=== PATIENT | male | born 1970 | race Caucasian/White ===

== ENCOUNTER 2023-04-01 18:56 | Inpatient (IN) | payer SELFPAY ==
[2023-04-01 19:09] VITALS: BP 193/141; PULSE 115; RESP 16; TEMP 36.9; O2SAT 94; BMI 40.6
--- NOTE | 2023-04-01 19:31 | DI.US.S_ITS ---
PROCEDURE: US SCROTUM INDICATIONS: significant swelling TECHNIQUE: Real-time scanning was performed of the scrotum and testicles, with image documentation. Color and pulse Doppler interrogation was performed of both testicles. COMPARISON: None. FINDINGS: Right: Testicle is normal in size at 4.1 x 3.1 x 3 cm, and homogenous in echotexture. Epididymis is normal in overall size and morphology. Small hydrocele is seen. No varicoceles. Diffuse right scrotal wall thickening is noted measures up to 4.4 cm in thickness. Left: Testicle is normal in size at 3.7 x 3 x 3.5 cm, and homogeneous in echotexture. Epididymis is normal in overall size and morphology. Small hydrocele is seen. No varicoceles. Diffuse scrotal wall thickening is noted measures up to 5.2 cm in thickness. Doppler: Color and pulse Doppler demonstrate normal and symmetric arterial flow in both testicles. IMPRESSION: 1. Diffuse scrotal wall thickening suggestive of cellulitis. Small bilateral hydroceles. No varicoceles. 2. Normal appearing testes and epididymi. No testicular torsion. No discrete testicular lesion. Dictated by: Darius Lu M.D. on 04/01/2023 at 20:53 Approved by: Darius Lu M.D. on 04/01/2023 at 20:54
--- NOTE | 2023-04-01 22:30 | DI.RAD.S_ITS ---
PROCEDURE: XR CHEST 1V INDICATIONS: Chest pain. TECHNIQUE: One view of the chest was acquired. COMPARISON: None. FINDINGS: Surgical changes and devices: None. Lungs and pleura: Subtle increased opacity in left suprahilar region is seen. Right lung is clear. No pleural effusions or pneumothorax. Mediastinum: Mediastinal contours appear normal. Heart size is enlarged. Bones and chest wall: No suspicious bony lesions. Overlying soft tissues appear unremarkable. IMPRESSION: Finding is concerning for small left upper lobe infiltrate. No pleural effusion or pneumothorax. Dictated by: Darius Lu M.D. on 04/01/2023 at 23:01 Approved by: Darius Lu M.D. on 04/01/2023 at 23:02
--- NOTE | 2023-04-01 22:30 | ED.MALEGU ---
HPI - Male Genitourinary General Chief complaint: Urogenital-Male Stated complaint: severe swelling of scrotum Time Seen by Provider: 04/01/23 19:31 Source: patient Mode of arrival: Ambulatory History of Present Illness HPI Narrative: Patient 53-year-old male history of hypertension prediabetes presenting today with scrotal swelling. He reports for the last 2 weeks he is felt like his body is significantly swollen he felt it in his abdomen legs arms. He thought he was constipated he did a 60 hour fast he took laxative he says he really did not have a bowel movement. He is no real abdominal pain no nausea or vomiting. He denies any fever. Today he had sudden onset increased swelling in his scrotum. His scrotum is so big that he is having difficulty walking. He denies any sexual activity or injury. He really is not having any pain. Related Data Previous Rx's Medication Instructions Recorded lisinopril 40 mg tablet 40 mg PO QDAY #90 tabs 02/23/17 Allergies Allergy/AdvReac Type Severity Reaction Status Date / Time penicillin G [PENICILLIN G] Allergy Unknown Verified 04/02/23 03:35 Review of Systems Review of Systems ROS Unobtainable: All systems reviewed & are unremarkable except as noted in HPI and below Patient History Medical History (Updated 04/02/23 @ 03:38 by Osiel Singh MD) HTN (hypertension) Family History Brother Age: 47 Cancer Mother Age: 71 Skin cancer Sister Age: 43 Skin cancer Social History household members: family Smoking Status: Never smoker alcohol intake: never Smoking Status: Never smoker Substance Use Type: does not use Exam Initial Vital Signs Initial Vital Signs: Vital Signs Temperature 98.4 F 04/01/23 19:09 Pulse Rate 115 H 04/01/23 19:09 Respiratory Rate 16 04/01/23 19:09 Blood Pressure 193/141 H 04/01/23 19:09 Pulse Oximetry 94 04/01/23 19:09 Oxygen Delivery Method Room Air 04/01/23 19:09 GENERAL: Alert very pleasant 53-year-old male with obesity HEENT: Head atraumatic,EOMI, pupils reactive, face symmetric, moist mucous membranes CARDIOVASCULAR: Regular rate and rhythm without murmurs, rubs or gallops. RESPIRATORY: Breath sounds equal bilaterally, no wheezes rales or rhonchi. ABDOMEN: Soft, nontender. Normoactive bowel sounds all 4 quadrants. No guarding or rebound. RECTAL: Hemoccult-positive, no hemorrhoids, nontender : manometer technician present for exam large grape fruit/small ball scrotum bilaterally. penis is sunken in but does come out. Mild erythema nontender to touch EXTREMITIES: Normal range of motion, no clubbing.+2 pitting edema Neurovascularly intact NEUROLOGICAL: Alert and oriented x4.Normal gait and speech. SKIN: Warm, dry, no laceration, no petechiae, no rashes or lesions. Course Orders Ordered: ED Orders 04/01/23 22:30 XR chest 1V Stat EKG-12 Lead Stat 04/01/23 22:39 Complete Blood Count AUTO DIFF Stat Comprehensive Metabolic Panel Stat Lipase Stat NT-proBNP (BNP-Adult 18+) Stat Troponin & CK Cardiac Panel Stat 04/02/23 01:19 Trop I [Troponin I] Stat Acetaminophen (Acetaminophen 325 Mg Tablet) 650 mg PO Q6H PRN PRN Reason: Fever/Mild Pain (1-3) Hydrocodone Bitart/Acetaminophen (Hydrocodone/Acet 5/325 Tablet) 1 tab PO Q4H PRN PRN Reason: Pain, Moderate (4-6) Al Hydrox/Mg Hydrox/Simethicone (Mag Hydrox/Alum/Simeth 30 Ml Udc) 30 ml PO Q6HR PRN PRN Reason: Dyspepsia Enoxaparin Sodium (Enoxaparin 40 Mg/0.4 Ml Syringe) 40 mg SUBCUT DAILY [facility] Furosemide (Furosemide 40 Mg Tablet) 40 mg PO 0800,1700 [facility] Metoprolol Tartrate (Metoprolol Ir 25 Mg Tablet) 25 mg PO TID TRACY Metoprolol Tartrate (Metoprolol Tartrate 5 Mg/5 Ml Inj) 5 mg IV Q2HR PRN PRN Reason: SBP > 170, hold if HR < 60 Last Admin: 04/02/23 04:40 Dose: 5 mg Documented By: JAIME Naloxone HCl (Naloxone 0.4 Mg/Ml Vial) 0.2 mg IV Q2MIN PRN PRN Reason: Opiate Reversal Ondansetron HCl (Ondansetron 4 Mg Odt) 4 mg PO Q8HR PRN PRN Reason: Nausea And Vomiting Sennosides (Sennosides 8.6 Mg Tablet) 17.2 mg PO BEDTIME TRACY Sodium Chloride (Sodium Chloride 0.9% Flush) 10 ml IV PRN PRN PRN Reason: Flush Sodium Chloride (Sodium Chloride 0.9% Flush) 10 ml IV BID TRACY Discontinued Medications Furosemide (Furosemide 40 Mg/4 Ml Vial) 40 mg IV NOW ONE Stop: 04/02/23 00:30 Last Admin: 04/02/23 00:39 Dose: 40 mg Documented By: LARRY Ceftriaxone Sodium 1,000 mg/ (Sodium Chloride) 100 mls @ 200 mls/hr IV NOW ONE Stop: 04/01/23 22:31 Last Infusion: 04/01/23 23:27 Dose: Infused Documented By: Admin: 04/01/23 22:52 Dose: 200 mls/hr Documented By: CATE Vital Signs Vital signs: Vital Signs - 8 hr 04/01/23 19:09 Temperature 98.4 F Pulse Rate 115 H Respiratory Rate 16 Blood Pressure 193/141 H Pulse Oximetry 94 Oxygen Delivery Method Room Air MDM - Male Genitourinary Lab Data 04/01/23 22:39 04/01/23 22:39 Labs: Lab Results 04/01/23 04/02/23 Range/Units 22:39 01:19 WBC 12.8 H (4.5-11.0) X10^3/uL RBC 4.89 (4.5-5.9) X10^6/uL Hgb 14.0 (13.5-17.5) g/dL Hct 41.5 (41-53) % MCV 85.0 (80-100) fL MCH 28.6 (26-34) PG MCHC 33.6 (30-36) % RDW 14.4 (11.6-14.8) % Plt Count 317 (150-400) X10^3/uL Neut % (Auto) 77.8 H (50-75) % Lymph % (Auto) 13.0 L (25-40) % [place] % (Auto) 7.3 (3-14) % Eos % (Auto) 1.1 L (2-4) % Baso % (Auto) 0.8 (0-2) % Neut # (Auto) 9900 H (5183-7779) /uL Lymph # (Auto) 1700 (2875-8917) /uL [place] # (Auto) 900 (0-900) /uL Eos # (Auto) 100 (0-450) /uL Baso # (Auto) 100 (0-100) /uL Sodium 140 (137-145) mmol/L Potassium 3.6 (3.4-5.1) mmol/L Chloride 108 H (98-107) mmol/L Carbon Dioxide 24 (22-32) mmol/L BUN 41 H (9-20) mg/dL Creatinine 1.34 H (0.66-1.25) mg/dL Estimated GFR > 60 (>60) mL/min BUN/Creatinine Ratio 30.6 H (6-22) Glucose 100 (70-100) mg/dL Calcium 8.9 (8.4-10.2) mg/dL Total Bilirubin 0.7 (0.2-1.3) mg/dL AST 64 H (17-59) IU/L ALT 98 H (<50) IU/L Alkaline Phosphatase 80 (38-126) U/L Total Creatine Kinase 198 H (55-170) U/L Troponin I 0.095 H 0.109 H (0.01-0.034) ng/mL NT-Pro-B Natriuret Pep 39720 H (<125) pg/mL Total Protein 5.7 L (6.3-8.2) g/dL Albumin 3.3 L (3.5-5.0) g/dL Globulin 2.4 (1.7-4.1) g/dL Albumin/Globulin Ratio 1.4 (1.0-2.8) Lipase 202 (23-300) U/L Imaging Data US scrotum: Radiologist's Impression: PROCEDURE: US SCROTUM INDICATIONS: significant swelling TECHNIQUE: Real-time scanning was performed of the scrotum and testicles, with image documentation. Color and pulse Doppler interrogation was performed of both testicles. COMPARISON: None. FINDINGS: Right: Testicle is normal in size at 4.1 x 3.1 x 3 cm, and homogenous in echotexture. Epididymis is normal in overall size and morphology. Small hydrocele is seen. No varicoceles. Diffuse right scrotal wall thickening is noted measures up to 4.4 cm in thickness. Left: Testicle is normal in size at 3.7 x 3 x 3.5 cm, and homogeneous in echotexture. Epididymis is normal in overall size and morphology. Small hydrocele is seen. No varicoceles. Diffuse scrotal wall thickening is noted measures up to 5.2 cm in thickness. Doppler: Color and pulse Doppler demonstrate normal and symmetric arterial flow in both testicles. IMPRESSION: 1. Diffuse scrotal wall thickening suggestive of cellulitis. Small bilateral hydroceles. No varicoceles. 2. Normal appearing testes and epididymi. No testicular torsion. No discrete testicular lesion. Dictated by: Darius Lu M.D. on 04/01/2023 at 20:53 ECG Data Interpretation: Sinus rhythm rate 107 CO interval 162 QRS 88 QTC 4 the 5 lead noted with probable LVH strain no ST elevations. No priors to compare. MDM Narrative Medical decision making narrative: Patient 53-year-old male who does not go to doctors morbidly obese presenting today with history of edema for 2 weeks. Today here for excess is scrotal swelling. Ultrasound does not show any hydrocele or torsion but is suggestive of cellulitis. Patient is afebrile is mild leukocytosis at 12 he is given a dose Rocephin however I do not think this is scrotal cellulitis. Highly unlikely any sort of 40s gangrene.I also think pretty low risk for STD. He is quite edematous and more consistent with edema. Patient has bilateral lower extremity edema. BNP is found to be greater than 11,000. Troponin is indeterminate with minimal increase. He is not having any chest pain shortness of breath. Due to excessive swelling and edema with no outpatient follow-up seems reasonable for patient to be admitted for diuresis. Patient increase. Dr. Singh Discharge Plan Departure Patient Disposition: Admitted As Inpatient Clinical Impression: CHF (congestive heart failure) Admit Date/Time: 04/02/23 01:31 Admit Provider: Osiel Singh
[2023-04-01 22:50] LABS: Add Manual Diff / Slide Review NO; Basophils Absolute Auto 100 /uL (0-100); Basophils Percent Auto 0.8 % (0-2); Eosinophils Absolute Auto 100 /uL (0-450); Eosinophils Percent Auto 1.1 % (2-4); Hematocrit 41.5 % (41-53); Lymphocytes Absolute Auto 1700 /uL (1100-4500); Mean Corpuscular HGB Conc 33.6 % (30-36); Mean Corpuscular Hemoglobin 28.6 PG (26-34); Monocytes Absolute Auto 900 /uL (0-900); Monocytes Percent Auto 7.3 % (3-14); Neutrophils Absolute Auto 9900 /uL (1500-7000); Neutrophils Percent Auto 77.8 % (50-75); Platelet Count 317 X10^3/uL (150-400); Red Blood Cell Count 4.89 X10^6/uL (4.5-5.9); Red Cell Distribution Width 14.4 % (11.6-14.8); White Blood Cell Count 12.8 X10^3/uL (4.5-11.0)
[2023-04-01] MEDS: cefTRIAXone 1,000 MG in SODIUM CHLORIDE 0.9% 100 ML 200 MG IV (22:52)
[2023-04-01 22:56] LABS: Alanine Aminotransferase 98 IU/L (<50); Albumin 3.3 g/dL (3.5-5.0); Albumin Globulin Ratio 1.4 (1.0-2.8); Alkaline Phosphatase 80 U/L (38-126); Aspartate Aminotransferase 64 IU/L (17-59); BUN Creatinine Ratio 30.6 (6-22); Bilirubin Total 0.7 mg/dL (0.2-1.3); Blood Urea Nitrogen 41 mg/dL (9-20); Calcium 8.9 mg/dL (8.4-10.2); Carbon Dioxide 24 mmol/L (22-32); Chloride 108 mmol/L (98-107); Creatine Kinase 198 U/L (55-170); Estimated Glomerular Filt Rate > 60 mL/min (>60); Globulin 2.4 g/dL (1.7-4.1); Glucose 100 mg/dL (70-100); HEMOLYSIS < 15 (0-50); Lipase 202 U/L (23-300); Potassium 3.6 mmol/L (3.4-5.1); Sodium 140 mmol/L (137-145); Total Protein 5.7 g/dL (6.3-8.2)
[2023-04-01 23:08] LABS: NT-proBNP (BNP-Adult 18+) 11800 pg/mL (<125); Troponin I 0.095 ng/mL (0.01-0.034)
[2023-04-02] VITALS (9 sets, daily range): BP systolic 135–202; BP diastolic 95–128; PULSE 77–112; RESP 18–19; TEMP 35.8–36.7; O2SAT 93–97; BMI 39.7
[2023-04-02] MEDS: FUROSEMIDE 40 MG/4 ML VIAL IV ×2 (00:39→09:18)
--- NOTE | 2023-04-02 01:42 | P.HP_ITS ---
History of Present Illness History of Present Illness Chief complaint: severe swelling of scrotum Narrative: 53 y/o with PMH of HTN, presented to ED with grossly swollen scrotum and difficulty ambulating. Workup negative for cellulitis or abscess although given a dose of Rocephin on admission due to high suspicion. In ED severely hypertensive with evidence of likely CKD. He complains on heaviness and scrotal tenderness, w/o fever, chills, dysuria or hematuria. Occasionally he has palpitations but not chest pain or pressure. He has significant exertional dyspnea lately. In the past he used to take Lisinopril for HTN but he stopped it couple of years ago, during pandemic, thinking ACEI will get him infected easier. Did not see PCP since. Treated with Lasix 40 mg x 1 iv and admitted with HF and uncontrolled HTN, on telemetry, with slightly elevated troponins. [facility] Medical History (Updated 04/02/23 @ 03:38 by Osiel Singh MD) HTN (hypertension) Family History Brother Age: 47 Cancer Mother Age: 71 Skin cancer Sister Age: 43 Skin cancer Social History Smoking Status: Never smoker Meds Home Medications and Allergies Home Medications Medication Instructions Recorded Confirmed Type lisinopril 40 mg tablet 40 mg PO QDAY #90 tabs 02/23/17 Rx Allergies Allergy/AdvReac Type Severity Reaction Status Date / Time penicillin G [PENICILLIN G] Allergy Unknown Verified 04/02/23 03:35 Review of Systems Constitutional Comments: w/o fever, chills or sweats Cardiovascular Comments: exertional dyspnea, swollen abdomen, legs, rare palpitations, no chest pain Respiratory Comments: w/o cough or wheezing Gastrointestinal Comments: abdomen getting bigger w/o N/V/changes of bowel habits, dark or bloody stool Genitourinary Comments: w/o dysuria Swollen scrotum Neurologic Comments: w/o weakness, numbness Hematologic/Lymphatic Comments: w/o bleeding or bruising Exam Vital Signs (past 8 hours): - 04/01/23 19:09 Temperature 98.4 F Pulse Rate 115 H Respiratory Rate 16 Blood Pressure 193/141 H Pulse Oximetry 94 Oxygen Delivery Method Room Air Oxygen Delivery Method Room Air Const Other: Sitting in bed in no distress Eyes Other: eomi, noelle Neck Other: w/o JVD Neuro Other: w/o deficits Psych Other: lucid Objective Labs 04/01/23 22:39 04/01/23 22:39 Labs: Laboratory Results - last 24 hr 04/01/23 22:39 WBC 12.8 H RBC 4.89 Hgb 14.0 Hct 41.5 MCV 85.0 MCH 28.6 MCHC 33.6 RDW 14.4 Plt Count 317 Neut % (Auto) 77.8 H Lymph % (Auto) 13.0 L [place] % (Auto) 7.3 Eos % (Auto) 1.1 L Baso % (Auto) 0.8 Neut # (Auto) 9900 H Lymph # (Auto) 1700 [place] # (Auto) 900 Eos # (Auto) 100 Baso # (Auto) 100 Sodium 140 Potassium 3.6 Chloride 108 H Carbon Dioxide 24 BUN 41 H Creatinine 1.34 H Estimated GFR > 60 BUN/Creatinine Ratio 30.6 H Glucose 100 Calcium 8.9 Total Bilirubin 0.7 AST 64 H ALT 98 H Alkaline Phosphatase 80 Total Creatine Kinase 198 H Troponin I 0.095 H NT-Pro-B Natriuret Pep 53427 H Total Protein 5.7 L Albumin 3.3 L Globulin 2.4 Albumin/Globulin Ratio 1.4 Lipase 202 Assessment & Plan Assessment and plan (1) Acute HF (heart failure): Status: Acute Plan: Diuresis, had Lasix in ED, continue PO 40 mg bid Echo pending Weights, Is&Os Likely result of longstanding, untreated HTN (2) HTN (hypertension): Status: Acute Plan: Severe. (3) CKD (chronic kidney disease): Status: Acute Plan: - monitored BMP with started lasix - avoidance of nephrotoxins (4) Noncompliance w/medication treatment due to intermit use of medication: Status: Acute Plan: Advised to establish PCP
[2023-04-02 01:47] LABS: Troponin I 0.109 ng/mL (0.01-0.034)
--- NOTE | 2023-04-02 03:43 | DI.ECHO.S_ITS ---
[facility] +---------+ : : [address] : : : : [id number] : : : : Phone: [phone] Echocardiogram Report + + :Name: TRACY MÁRQUEZ Study Date: 04/03/2023 Height: 72 in : :[facility] ReadingLocation: Weight: 293 lb : : Gender: Male BSA: 2.5 m2 : :: 1970 Age: 53 yrs BP: 145/110 mmHg: :Reason For Study: HEART FAILURE : :Ordering Physician: BOOKER, : :JAIDA Deal MD Performed By: Eli Greenwood : :Referring: JAIDA CELESTE MD : + + Interpretation Summary The left ventricle is mild-moderately dilated. There is moderate concentric left ventricular hypertrophy. The ejection fraction is estimated to be 20-25%. There is severe global hypokinesis of the left ventricle. Diastolic parameters suggest a restrictive filling pattern consistent with probable significantly elevated filling pressures. Mildly dilated right ventricle with normal right ventricular systolic function. The left atrium is moderately dilated. The right atrium is mild to moderately dilated. Mild aortic regurgitation. Mild mitral regurgitation. Moderate tricuspid regurgitation. The right ventricular systolic pressure is estimated to be at least 51 mmHg based on an estimated right atrial pressure of 15 mm Hg. The ascending aorta is mild-moderately enlarged. Procedure: A two-dimensional transthoracic echocardiogram with color flow and Doppler was performed. The study quality was technically adequate. There is no prior echocardiogram noted for this patient. The patient was in sinus rhythm with heart rates between 76-102 bpm during the exam. Left Ventricle: The left ventricle is mild-moderately dilated. The estimated left ventricular end diastolic volume is 225 ml. There is moderate concentric left ventricular hypertrophy. The ejection fraction is estimated to be 20-25%. There is severe global hypokinesis of the left ventricle. Diastolic parameters suggest a restrictive filling pattern consistent with probable significantly elevated filling pressures. Right Ventricle: The right ventricle is mildly dilated. The right ventricular systolic function is normal. Atria: The left atrium is moderately dilated. The right atrium is mild to moderately dilated. There is no Doppler evidence for an interatrial shunt. Mitral Valve: The mitral valve leaflets appear mildly thickened, but open well. There is mild mitral regurgitation. Aortic Valve: The aortic valve is trileaflet. The aortic valve opens well. There is no aortic valve stenosis. There is mild aortic regurgitation. Tricuspid Valve: The tricuspid valve is normal in structure and function. There is moderate tricuspid regurgitation. The right ventricular systolic pressure is estimated to be at least 51 mmHg based on an estimated right atrial pressure of 15 mm Hg. Pulmonic Valve: The pulmonic valve is not well seen, but is grossly normal. There is mild pulmonic regurgitation. Great Vessels: The aortic root is normal size. The ascending aorta is mild- moderately enlarged. The IVC is dilated (diameter is greater than 2.1 cm) and it collapses less than 50% with a sniff. This suggests a high right atrial pressure of 15 mm Hg. Pericardium/ Pleura There is no pericardial effusion. There is no pleural effusion. MMode/2D Measurements & Calculations LVIDd: 6.4 cm LVOT diam: 2.6 cm LVIDs: 5.9 cm Ao root diam: 4.0 cm FS: 8.1 % asc Aorta Diam: 4.3 cm EPSS: 1.7 cm IVSd: 1.5 cm LVPWd: 1.8 cm LV puga. diameter/BSA (cm/m^2): 2.6 LV sys. diameter/BSA (cm/m^2): 2.4 LA A2 area: 29.8 cm2 RA long axis: 7.2 cm LA A4 area: 32.7 cm2 RA area: 28.8 cm2 LA length (vol): 7.2 cm RA vol: 98.0 ml LA vol: 115.3 ml RA : 39.1 ml/m2 LA vol index: 46.0 ml/m2 IVC diam: 3.0 cm RVD1 (basal): 4.3 cm RVD2 (mid): 3.2 cm TAPSE: 2.0 cm Doppler Measurements & Calculations Ao V2 max: 117.0 cm/sec LVOT Max Giovanni: 67.7 cm/sec Ao V2 mean: 84.1 cm/sec LV V1 max P.8 mmHg Ao max P.5 mmHg LV V1 VTI: 10.8 cm Ao mean P.1 mmHg NAYA(I,D): 2.6 cm2 Ao V2 VTI: 22.1 cm NAYA(V,D): 3.1 cm2 sev ratio: 0.49 NAYA indexed to BSA (cm^2/m^2): 1.1 MV E max giovanni: 82.7 cm/sec TR max giovanni: 299.9 cm/sec MV A max giovanni: 50.0 cm/sec TR max P.0 mmHg MV E/A: 1.7 PA V2 max: 82.9 cm/sec Med Peak E' Giovanni: 3.8 cm/sec PA V2 mean: 59.7 cm/sec E/E' med: 21.6 PA mean P.6 mmHg Lat Peak E' Giovanni: 6.7 cm/sec PA pr(Accel): 41.3 mmHg E/E' lat: 12.3 E/e' average: 16.9 MV dec time: 0.17 sec SV(LVOT): 58.1 ml Electronically signed by: Bradofrd Clark on Reading Physician:04/03/2023 10:27 AM
[2023-04-02] MEDS: METOPROLOL TARTRATE 5 MG/5 ML INJ IV (04:40)
[2023-04-02 08:23] LABS: Add Manual Diff / Slide Review NO; Basophils Absolute Auto 100 /uL (0-100); Basophils Percent Auto 1.2 % (0-2); Eosinophils Absolute Auto 100 /uL (0-450); Eosinophils Percent Auto 0.8 % (2-4); Hematocrit 41.1 % (41-53); Hemoglobin 13.8 g/dL (13.5-17.5); Lymphocytes Absolute Auto 1500 /uL (1100-4500); Lymphocytes Percent Auto 13.4 % (25-40); Mean Corpuscular HGB Conc 33.5 % (30-36); Mean Corpuscular Hemoglobin 28.4 PG (26-34); Mean Corpuscular Volume 84.8 fL (80-100); Monocytes Absolute Auto 1000 /uL (0-900); Monocytes Percent Auto 8.6 % (3-14); Neutrophils Absolute Auto 8400 /uL (1500-7000); Platelet Count 303 X10^3/uL (150-400); Red Blood Cell Count 4.85 X10^6/uL (4.5-5.9); Red Cell Distribution Width 14.6 % (11.6-14.8); White Blood Cell Count 11.1 X10^3/uL (4.5-11.0)
[2023-04-02 08:28] LABS: Hemoglobin A1C% w Est Avg Glu 5.3 % (4.0-6.0)
[2023-04-02 08:35] LABS: BUN Creatinine Ratio 28.1 (6-22); Blood Urea Nitrogen 38 mg/dL (9-20); Calcium 8.6 mg/dL (8.4-10.2); Carbon Dioxide 26 mmol/L (22-32); Chloride 104 mmol/L (98-107); Cholesterol 146 mg/dL (140-199); Estimated Glomerular Filt Rate > 60 mL/min (>60); Glucose 108 mg/dL (70-100); HDL Cholesterol 30 mg/dL (40-60); HEMOLYSIS < 15 (0-50); LDL Cholesterol Calculated 95 mg/dL (<100); Magnesium 1.8 mg/dL (1.6-2.3); Potassium 3.7 mmol/L (3.4-5.1); Sodium 137 mmol/L (137-145); Triglycerides 104 mg/dL (35-150)
[2023-04-02 08:40] LABS: NT-proBNP (BNP-Adult 18+) 13000 pg/mL (<125)
[2023-04-02] MEDS: METOPROLOL IR 25 MG TABLET PO (08:46)
[2023-04-02] MEDS: SODIUM CHLORIDE 0.9% FLUSH 10 ML IV ×2 (08:46→21:54)
[2023-04-02] MEDS: ENOXAPARIN 40 MG/0.4 ML SYRINGE SUBCUT (08:46)
[2023-04-02] MEDS: AMLODIPINE 5 MG TABLET 10 MG PO (09:18)
[2023-04-02] MEDS: cefTRIAXone 1,000 MG in SODIUM CHLORIDE 0.9% 100 ML 200 MG IV (09:18)
[2023-04-02] MEDS: VANCOMYCIN 1,000 MG/200 ML PIGGYBACK 200 MG IV ×2 (10:48→21:53)
[2023-04-02 14:16] LABS: Troponin I 0.119 ng/mL (0.01-0.034)
--- NOTE | 2023-04-02 14:33 | CM.DANOTE ---
Initial DCP Assessment Note Pt is a 53 yo male, resident of [place], arrives with scrotal swelling to the point of not being able to walk, admitted for management of CHF with acute on chronic CKD. PCP: None Payer: Self Pay Reviewed chart, met w/patient to introduce self and role. 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 Patient is indp in all aspects. Patient reports that he was in the middle of looking into insurance before coming into the hospital. Provided information on the [place] Jamalon finder, the Health Insurance Counseling resource at and at [facility] in [facility]. Patient denies further need from this USED CAR MANAGER at this time. Plan: Discharge home anticipated. Close outpatient follow up is recommended once patient secures insurance. VINCENT Valdez Discharge Planning/Care Management CM Discharge Assessment Start: 04/02/23 14:32 Freq: Status: Active Protocol: Document 04/02/23 14:32 KO (Rec: 04/02/23 14:33 KO [id number]) Discharge Planning Assessment Assigned Plywood Stock Grader VINCENT Moran DPOA/Assigned Designee Name Igor Gar brother Contact Information [phone] Advance Directives? No History Provided By Patient,Medical Record Prior Living Arrangements House Comment lives with brother Household Members family Type of transporation used prior to Drives own vehicle admit Independent with ADL's Yes Is patient alert and oriented? Yes Barriers to Discharge No Discharge Plan Home Transportation Arrangement Family Referrals Initiated None needed
[2023-04-02] MEDS: FUROSEMIDE 40 MG/4 ML VIAL 60 MG IV (15:51)
[2023-04-02] MEDS: acetaZOLAMIDE 250 MG TABLET 500 MG PO (15:51)
[2023-04-02 19:57] LABS: Troponin I 0.101 ng/mL (0.01-0.034)
[2023-04-03 01:00] VITALS: BP 149/106; PULSE 76; RESP 18; TEMP 37.1; O2SAT 95
[2023-04-03 03:34] LABS: Add Manual Diff / Slide Review NO; Basophils Absolute Auto 100 /uL (0-100); Eosinophils Absolute Auto 300 /uL (0-450); Eosinophils Percent Auto 2.2 % (2-4); Hematocrit 43.1 % (41-53); Hemoglobin 14.3 g/dL (13.5-17.5); Lymphocytes Absolute Auto 2100 /uL (1100-4500); Mean Corpuscular HGB Conc 33.1 % (30-36); Mean Corpuscular Hemoglobin 28.2 PG (26-34); Mean Corpuscular Volume 85.1 fL (80-100); Monocytes Absolute Auto 1200 /uL (0-900); Monocytes Percent Auto 10.2 % (3-14); Neutrophils Absolute Auto 8100 /uL (1500-7000); Neutrophils Percent Auto 68.6 % (50-75); Platelet Count 296 X10^3/uL (150-400); Red Blood Cell Count 5.07 X10^6/uL (4.5-5.9); Red Cell Distribution Width 14.5 % (11.6-14.8); White Blood Cell Count 11.8 X10^3/uL (4.5-11.0)
[2023-04-03 03:43] LABS: Troponin I 0.084 ng/mL (0.01-0.034)
[2023-04-03 03:53] LABS: BUN Creatinine Ratio 25.8 (6-22); Blood Urea Nitrogen 42 mg/dL (9-20); Carbon Dioxide 24 mmol/L (22-32); Chloride 105 mmol/L (98-107); Estimated Glomerular Filt Rate 50 mL/min (>60); Glucose 96 mg/dL (70-100); HEMOLYSIS 20 (0-50); Potassium 3.5 mmol/L (3.4-5.1); Sodium 139 mmol/L (137-145)
[2023-04-03 04:08] LABS: Procalcitonin 0.11 ng/mL (<0.5)
[2023-04-03 05:00] VITALS: BP 145/110; PULSE 76; RESP 19; TEMP 36.1; O2SAT 95
[2023-04-03 05:36] VITALS: BMI 39.7
[2023-04-03] MEDS: FUROSEMIDE 40 MG/4 ML VIAL 60 MG IV (08:45)
[2023-04-03] MEDS: acetaZOLAMIDE 250 MG TABLET 500 MG PO (08:45)
[2023-04-03] MEDS: AMLODIPINE 5 MG TABLET 10 MG PO (08:46)
[2023-04-03] MEDS: ENOXAPARIN 40 MG/0.4 ML SYRINGE SUBCUT (08:46)
[2023-04-03] MEDS: cefTRIAXone 1,000 MG in SODIUM CHLORIDE 0.9% 100 ML 200 MG IV (08:46)
[2023-04-03] MEDS: SODIUM CHLORIDE 0.9% FLUSH 10 ML IV ×2 (08:47→23:54)
[2023-04-03 09:00] VITALS: BP 142/73; PULSE 72; RESP 21; TEMP 36.3; O2SAT 99
[2023-04-03] MEDS: VANCOMYCIN 1,000 MG/200 ML PIGGYBACK 200 MG IV ×2 (11:15→23:53)
[2023-04-03 11:48] LABS: Appearance Urine UA CLEAR; Bilirubin Urine UA NEGATIVE (NEGATIVE); Color Urine UA YELLOW; Glucose Urine UA NEGATIVE (Negative); Ketones Urine UA NEGATIVE (NEGATIVE); Leukocyte Esterase Urine UA NEGATIVE (NEGATIVE); Nitrite Urine UA NEGATIVE (Negative); Occult Blood Urine UA NEGATIVE (Negative); Protein Urine UA NEGATIVE (Negative); Urobilinogen Urine UA 0.2 E.U./dL (0.2); pH Urine UA 7.5 (4.5-8.0)
[2023-04-03 11:53] LABS: UR Morphine/Opiate cutoff 300 Negative (Negative); Ur Creatinine Normal (Normal); Ur Specific Gravity Normal (Normal); Urine Amphetamines Negative (Negative); Urine Barbiturates Negative (Negative); Urine Benzodiazepines Negative (Negative); Urine Cocaine Negative (Negative); Urine MDMA Negative (Negative); Urine Methadone Negative (Negative); Urine Methamphetamines Negative (Negative); Urine Oxycodone Negative (Negative); Urine Phencyclidine Negative (Negative); Urine Tetrahydrocannabinol Negative (Negative); Urine Tricyclic Antidepressant Negative (Negative); Urine pH Normal (Normal)
[2023-04-03 11:55] LABS: Bacteria Urine None Seen; Culture Indicated Urine Cult Not Indicated; RBC Urine None Seen (0-5/HPF); Squamous Epithelial Cell Urine None Seen (0-5/HPF); WBC Urine None Seen (0-5/HPF)
--- NOTE | 2023-04-03 12:02 | CM.DPC ---
DCP Note Cont. Reviewed chart and team rounds for status updates. Pt's ECHO results are pending, no d/c orders in place at this time. Plan remains d/c home, no anticipated d/c needs identified at this time. Cont. to monitor.
[2023-04-03 12:24] LABS: Creatinine Urine Random 18.2 mg/dL; Protein (Total) Urine Random 14 mg/dL (0-12); Protein Creatinine Ratio Urine 0.76 GRAM/24H
[2023-04-03 12:31] VITALS: BP 142/73; PULSE 72
[2023-04-03] MEDS: SPIRONOLACTONE 25 MG TABLET 12.5 MG PO (12:31)
[2023-04-03] MEDS: LOSARTAN 25 MG TABLET PO (12:31)
[2023-04-03 17:00] VITALS: BP 154/99; PULSE 83; RESP 20; TEMP 36.3; O2SAT 95
[2023-04-03] MEDS: FUROSEMIDE 60 MG in SODIUM CHLORIDE 0.9% 50 ML 112 MG IV (17:37)
--- NOTE | 2023-04-03 18:26 | P.PN_ITS ---
Subjective Subjective Interval history: Patient diuresed -8L. Swelling still present. Echo showed EF 20-25% and global LV hypokinesis. This was relayed to patient and sister who is an OBGYN. Cardiology suggests likely from uncontrolled hypertensive cardiomyopathy. Exam Narrative Exam Narrative: GEN: no acute distress, obese HEENT: moist mucous membranes, PERRL NECK: trachea midline, no JVD CV: regular rate and rhythm, no murmurs PULM: mild rales ABD: soft, nontender, nondistended, no organomegaly, edema present on abdomen EXT: 2-3+ pitting edema from feet to thighs, scrotal edema present NEURO: awake, alert, oriented, no focal deficits Objective Labs 04/03/23 03:09 04/03/23 03:09 Labs: Laboratory Results - last 24 hr 04/02/23 04/03/23 04/03/23 19:18 03:09 11:35 WBC 11.8 H RBC 5.07 Hgb 14.3 Hct 43.1 MCV 85.1 MCH 28.2 MCHC 33.1 RDW 14.5 Plt Count 296 Neut % (Auto) 68.6 Lymph % (Auto) 18.0 L [place] % (Auto) 10.2 Eos % (Auto) 2.2 Baso % (Auto) 1.0 Neut # (Auto) 8100 H Lymph # (Auto) 2100 [place] # (Auto) 1200 H Eos # (Auto) 300 Baso # (Auto) 100 Sodium 139 Potassium 3.5 Chloride 105 Carbon Dioxide 24 BUN 42 H Creatinine 1.63 H Estimated GFR 50 L BUN/Creatinine Ratio 25.8 H Glucose 96 Calcium 9.0 Troponin I 0.101 H 0.084 H Procalcitonin 0.11 Urine Color Yellow Urine Appearance Clear Urine pH 7.5 Ur Specific [place] 1.010 Urine Protein Negative Urine Glucose (UA) Negative Urine Ketones Negative Urine Occult Blood Negative Urine Nitrate Negative Urine Bilirubin Negative Urine Urobilinogen 0.2 Ur Leukocyte Esterase Negative Urine RBC None seen Urine WBC None seen Ur Squamous Epith Cells None seen Urine Bacteria None seen Ur Culture Indicated? Cult not indicated U Random Total Protein 14 H Urine Creatinine 18.2 Protein/Creatinin Ratio 0.76 U Opiates 300ng/mL cut Negative Ur Oxycodone Screen Negative Urine Methadone Screen Negative Ur Barbiturates Screen Negative U Tricyclic Antidepress Negative Ur Phencyclidine Scrn Negative Ur Amphetamines Screen Negative U Methamphetamines Scrn Negative Ur MDMA Scrn (Ecstasy) Negative U Benzodiazepines Scrn Negative Urine Cocaine Screen Negative U Marijuana (THC) Screen Negative PFSH Medical History (Updated 04/03/23 @ 18:29 by Igor Alonso DO) HTN (hypertension) Family History (Updated 04/02/23 @ 22:15 by Astrid Spencer, RN) Brother Age: 47 No problems noted. Mother Age: 71 Skin cancer NSTEMI (non-ST elevated myocardial infarction) Cancer Hypertension Sister Age: 43 Skin cancer Father Stroke due to embolism of left middle cerebral artery Hypertension Social History household members: family Smoking Status: Never smoker alcohol intake: never Assessment & Plan Assessment and plan (1) Acute HF (heart failure): Status: Acute Plan: Echo with EF 20-25%, global LV hypokinesis Likely result of longstanding, untreated HTN start BB once euvolemic continue lasix 60mg IV BID losartan, spironolactone started per cards will need ischemic eval with nuclear stress once euvolemic (2) Cellulitis of scrotum: Status: Acute Plan: patient noted fevers at home to 103F US scrotum suggested possible cellulitis with soft tissue swelling WBC elevated continue rocephin and vanc (3) HTN (hypertension): Status: Acute Plan: Severe. Start losartan, amlodipine and spironolactone. May add chlorthalidone if BP still high. (4) CKD (chronic kidney disease): Status: Acute Plan: - monitored BMP with started lasix - avoidance of nephrotoxins (5) Noncompliance w/medication treatment due to intermit use of medication: Status: Acute Plan: Advised to establish PCP
[2023-04-03 20:59] VITALS: BP 140/84; PULSE 74; RESP 19; TEMP 36.3; O2SAT 94
[2023-04-03 22:08] LABS: Vancomycin Trough 12.1 ug/mL (10-20)
[2023-04-03] MEDS: VANCOMYCIN TROUGH 1 REQUEST MISC (23:53)
[2023-04-04] VITALS (7 sets, daily range): BP systolic 115–157; BP diastolic 73–100; PULSE 74–89; RESP 18–20; TEMP 36.3–37.5; O2SAT 94–97
[2023-04-04 05:37] LABS: Add Manual Diff / Slide Review NO; Basophils Absolute Auto 100 /uL (0-100); Basophils Percent Auto 0.7 % (0-2); Eosinophils Absolute Auto 300 /uL (0-450); Eosinophils Percent Auto 2.9 % (2-4); Hematocrit 39.4 % (41-53); Hemoglobin 13.1 g/dL (13.5-17.5); Lymphocytes Absolute Auto 1700 /uL (1100-4500); Lymphocytes Percent Auto 17.9 % (25-40); Mean Corpuscular HGB Conc 33.3 % (30-36); Mean Corpuscular Hemoglobin 28.4 PG (26-34); Mean Corpuscular Volume 85.2 fL (80-100); Monocytes Absolute Auto 1000 /uL (0-900); Monocytes Percent Auto 10.2 % (3-14); Neutrophils Absolute Auto 6700 /uL (1500-7000); Neutrophils Percent Auto 68.3 % (50-75); Platelet Count 277 X10^3/uL (150-400); Red Blood Cell Count 4.63 X10^6/uL (4.5-5.9); Red Cell Distribution Width 14.2 % (11.6-14.8); White Blood Cell Count 9.8 X10^3/uL (4.5-11.0)
[2023-04-04 06:38] LABS: Blood Urea Nitrogen 41 mg/dL (9-20); Carbon Dioxide 24 mmol/L (22-32); Chloride 108 mmol/L (98-107); Estimated Glomerular Filt Rate 55 mL/min (>60); Glucose 99 mg/dL (70-100); HEMOLYSIS < 15 (0-50); Potassium 3.2 mmol/L (3.4-5.1); Sodium 139 mmol/L (137-145)
[2023-04-04] MEDS: AMLODIPINE 5 MG TABLET 10 MG PO (08:49)
[2023-04-04] MEDS: FUROSEMIDE 60 MG in SODIUM CHLORIDE 0.9% 50 ML 112 MG IV ×2 (08:49→17:10)
[2023-04-04] MEDS: SODIUM CHLORIDE 0.9% FLUSH 10 ML IV ×2 (08:50→20:50)
[2023-04-04] MEDS: LOSARTAN 25 MG TABLET PO (08:50)
[2023-04-04] MEDS: SPIRONOLACTONE 25 MG TABLET 12.5 MG PO (08:50)
[2023-04-04] MEDS: ENOXAPARIN 40 MG/0.4 ML SYRINGE SUBCUT (08:50)
[2023-04-04] MEDS: acetaZOLAMIDE 250 MG TABLET 500 MG PO (08:51)
[2023-04-04] MEDS: cefTRIAXone 1,000 MG in SODIUM CHLORIDE 0.9% 100 ML 200 MG IV (08:57)
[2023-04-04] MEDS: VANCOMYCIN 1,000 MG/200 ML PIGGYBACK 200 MG IV (11:24)
--- NOTE | 2023-04-04 16:26 | PM.PN.1 ---
Subjective Subjective Interval history: Patient continues to diurese well, but is till several liters up on exam. Explained what each heart med does to help improve his EF. Exam Vital Signs (past 8 hours): - 04/04/23 08:50 04/04/23 08:52 04/04/23 09:15 Temperature 99.5 F 99.5 F Pulse Rate 84 84 84 Respiratory Rate 18 18 Blood Pressure 137/89 137/89 137/89 Pulse Oximetry 94 94 Oxygen Delivery Method Room Air Oxygen Flow Rate 0 Narrative Exam Narrative: GEN: no acute distress, obese HEENT: moist mucous membranes, PERRL NECK: trachea midline, no JVD CV: regular rate and rhythm, no murmurs PULM: mild rales ABD: soft, nontender, nondistended, no organomegaly, edema present on abdomen EXT: 2-3+ pitting edema from feet to thighs, scrotum very swollen but no significant erythema NEURO: awake, alert, oriented, no focal deficits Objective Labs 04/04/23 05:05 04/04/23 05:05 Labs: Laboratory Results - last 24 hr 04/03/23 04/04/23 21:25 05:05 WBC 9.8 RBC 4.63 Hgb 13.1 L Hct 39.4 L MCV 85.2 MCH 28.4 MCHC 33.3 RDW 14.2 Plt Count 277 Neut % (Auto) 68.3 Lymph % (Auto) 17.9 L [place] % (Auto) 10.2 Eos % (Auto) 2.9 Baso % (Auto) 0.7 Neut # (Auto) 6700 Lymph # (Auto) 1700 [place] # (Auto) 1000 H Eos # (Auto) 300 Baso # (Auto) 100 Sodium 139 Potassium 3.2 L Chloride 108 H Carbon Dioxide 24 BUN 41 H Creatinine 1.52 H Estimated GFR 55 L BUN/Creatinine Ratio 27.0 H Glucose 99 Calcium 9.0 Procalcitonin 0.10 Vancomycin Trough 12.1 PFSH Medical History (Updated 04/03/23 @ 18:29 by Igor Alonso DO) HTN (hypertension) Family History (Updated 04/02/23 @ 22:15 by Astrid Spencer RN) Brother Age: 47 No problems noted. Mother Age: 71 Skin cancer NSTEMI (non-ST elevated myocardial infarction) Cancer Hypertension Sister Age: 43 Skin cancer Father Stroke due to embolism of left middle cerebral artery Hypertension Social History household members: family Smoking Status: Never smoker alcohol intake: never Assessment & Plan Assessment and plan (1) Acute HF (heart failure): Status: Acute Plan: Echo with EF 20-25%, global LV hypokinesis Likely result of longstanding, untreated HTN start BB once euvolemic continue lasix 60mg IV BID losartan, spironolactone started per cards will need ischemic eval with nuclear stress once euvolemic (2) Cellulitis of scrotum: Status: Acute Plan: patient noted fevers at home to 103F, afebrile here US scrotum suggested possible cellulitis with soft tissue swelling WBC elevated initially, now normal continue rocephin, switched vanc to linezolid to limit 250cc IVF with each vanc dose (3) HTN (hypertension): Status: Acute Plan: Severe. Start losartan, amlodipine and spironolactone. May add chlorthalidone if BP still high. (4) CKD (chronic kidney disease): Status: Acute Plan: - monitored BMP with started lasix - avoidance of nephrotoxins (5) Noncompliance w/medication treatment due to intermit use of medication: Status: Acute Plan: Advised to establish PCP Plan Dispo: 2-3 more days for diuresis then nuclear stress.
[2023-04-04] MEDS: LINEZOLID 600 MG TABLET PO (20:50)
[2023-04-04 22:17] LABS: Potassium 3.7 mmol/L (3.4-5.1)
[2023-04-04 22:18] LABS: HEMOLYSIS 55 (0-50)
[2023-04-05] VITALS (7 sets, daily range): BP systolic 131–147; BP diastolic 84–97; PULSE 76–92; RESP 16–19; TEMP 36–36.6; O2SAT 95–98
[2023-04-05 06:13] LABS: BUN Creatinine Ratio 24.4 (6-22); Blood Urea Nitrogen 32 mg/dL (9-20); Calcium 9.2 mg/dL (8.4-10.2); Carbon Dioxide 21 mmol/L (22-32); Chloride 109 mmol/L (98-107); Estimated Glomerular Filt Rate > 60 mL/min (>60); Glucose 102 mg/dL (70-100); HEMOLYSIS < 15 (0-50); Potassium 3.5 mmol/L (3.4-5.1); Sodium 139 mmol/L (137-145)
[2023-04-05 06:15] LABS: Add Manual Diff / Slide Review NO; Basophils Absolute Auto 100 /uL (0-100); Basophils Percent Auto 0.8 % (0-2); Eosinophils Absolute Auto 300 /uL (0-450); Eosinophils Percent Auto 3.3 % (2-4); Hematocrit 41.9 % (41-53); Hemoglobin 14.1 g/dL (13.5-17.5); Lymphocytes Absolute Auto 1400 /uL (1100-4500); Mean Corpuscular HGB Conc 33.6 % (30-36); Mean Corpuscular Hemoglobin 28.3 PG (26-34); Mean Corpuscular Volume 84.5 fL (80-100); Monocytes Absolute Auto 900 /uL (0-900); Monocytes Percent Auto 9.5 % (3-14); Neutrophils Absolute Auto 6500 /uL (1500-7000); Neutrophils Percent Auto 71.4 % (50-75); Platelet Count 305 X10^3/uL (150-400); Red Blood Cell Count 4.96 X10^6/uL (4.5-5.9); Red Cell Distribution Width 14.7 % (11.6-14.8); White Blood Cell Count 9.1 X10^3/uL (4.5-11.0)
[2023-04-05] MEDS: cefTRIAXone 1,000 MG in SODIUM CHLORIDE 0.9% 100 ML 200 MG IV (08:50)
[2023-04-05] MEDS: LINEZOLID 600 MG TABLET PO ×2 (08:51→21:00)
[2023-04-05] MEDS: acetaZOLAMIDE 250 MG TABLET 500 MG PO (08:51)
[2023-04-05] MEDS: POTASSIUM CHLORIDE 20 MEQ TAB PO (08:52)
[2023-04-05] MEDS: LOSARTAN 25 MG TABLET PO (08:52)
[2023-04-05] MEDS: SPIRONOLACTONE 25 MG TABLET 12.5 MG PO (08:52)
[2023-04-05] MEDS: AMLODIPINE 5 MG TABLET 10 MG PO (08:53)
[2023-04-05] MEDS: FUROSEMIDE 60 MG in SODIUM CHLORIDE 0.9% 50 ML 112 MG IV ×2 (10:30→17:41)
[2023-04-05] MEDS: SODIUM CHLORIDE 0.9% FLUSH 10 ML IV ×2 (10:30→21:01)
[2023-04-05] MEDS: SODIUM CHLORIDE 0.9% 250 ML 21 ML IV (10:31)
--- NOTE | 2023-04-05 15:26 | PM.PN.1 ---
Subjective Subjective Interval history: Patient continues to diurese well, continues to significant scrotal and leg edema. Exam Vital Signs (past 8 hours): - 04/05/23 08:52 04/05/23 08:57 Temperature 97.3 F L Pulse Rate 76 78 Respiratory Rate 16 Blood Pressure 141/93 H 147/97 H Pulse Oximetry 98 Oxygen Delivery Method Room Air Oxygen Flow Rate 0 Narrative Exam Narrative: GEN: no acute distress, obese HEENT: moist mucous membranes, PERRL NECK: trachea midline, no JVD CV: regular rate and rhythm, no murmurs PULM: mild rales ABD: soft, nontender, nondistended, no organomegaly, edema present on abdomen EXT: 1-2+ pitting edema from feet to thighs, scrotum very swollen but no significant erythema NEURO: awake, alert, oriented, no focal deficits Objective Labs 04/05/23 05:24 04/05/23 05:24 Labs: Laboratory Results - last 24 hr 04/04/23 04/05/23 21:30 05:24 WBC 9.1 RBC 4.96 Hgb 14.1 Hct 41.9 MCV 84.5 MCH 28.3 MCHC 33.6 RDW 14.7 Plt Count 305 Neut % (Auto) 71.4 Lymph % (Auto) 15.0 L [place] % (Auto) 9.5 Eos % (Auto) 3.3 Baso % (Auto) 0.8 Neut # (Auto) 6500 Lymph # (Auto) 1400 [place] # (Auto) 900 Eos # (Auto) 300 Baso # (Auto) 100 Sodium 139 Potassium 3.7 3.5 Chloride 109 H Carbon Dioxide 21 L BUN 32 H Creatinine 1.31 H Estimated GFR > 60 BUN/Creatinine Ratio 24.4 H Glucose 102 H Calcium 9.2 Procalcitonin 0.10 PFSH Medical History (Updated 04/05/23 @ 15:34 by Deven Heard DO) HTN (hypertension) Family History (Updated 04/02/23 @ 22:15 by Astrid Spencer RN) Brother Age: 47 No problems noted. Mother Age: 71 Skin cancer NSTEMI (non-ST elevated myocardial infarction) Cancer Hypertension Sister Age: 43 Skin cancer Father Stroke due to embolism of left middle cerebral artery Hypertension Social History household members: family Smoking Status: Never smoker alcohol intake: never Assessment & Plan Assessment and plan (1) Acute HF (heart failure): Problem details: Acute systolic heart failure Status: Acute Plan: Echo with EF 20-25%, global LV hypokinesis Likely result of longstanding, untreated HTN Okay to start beta xiomy tomorrow continue lasix 60mg IV BID, weight is coming down as expected. ordered for stict Is & Os now. losartan, spironolactone started per cards will need ischemic eval with nuclear stress once euvolemic, unlikely to achieve this prior to tomorrow. If still here Sunday will order over the weekend. (2) Cellulitis of scrotum: Status: Acute Plan: patient noted fevers at home to 103F, afebrile here US scrotum suggested possible cellulitis with soft tissue swelling WBC elevated initially, now normal continue rocephin for 5 days (1 more day remaining), switched vanc to linezolid to limit 250cc IVF with each vanc dose (3) HTN (hypertension): Status: Acute Plan: Severe on presentation. Start losartan, amlodipine and spironolactone. Improving. Start beta xiomy tomorrow as discussed above. (4) Noncompliance w/medication treatment due to intermit use of medication: Status: Acute Plan: Advised to establish PCP (5) Acute kidney injury superimposed on chronic kidney disease: Status: Acute Plan: Likely secondary to volume overload, JARED has been improving thus far with diuresis. Unknown baseline creatinine but likely around 1.3. Cr as high as 1.6 on 04/03. Plan Dispo: 2-3 more days for diuresis then nuclear stress. Assessment & Plan narrative: Dispo: discharge home, timing unclear as need to get to near euvolemic prior to discharge as there is need for stress testing prior to discharge given patient is without PCP or data sciences director.
[2023-04-06] VITALS: BP 129/90; PULSE 82; RESP 18; TEMP 36.3; O2SAT 97
[2023-04-06 05:54] VITALS: BP 151/97; PULSE 93; RESP 19; TEMP 36.8; O2SAT 95
[2023-04-06 06:58] LABS: Add Manual Diff / Slide Review NO; Basophils Absolute Auto 100 /uL (0-100); Eosinophils Absolute Auto 400 /uL (0-450); Eosinophils Percent Auto 3.7 % (2-4); Hematocrit 40.2 % (41-53); Hemoglobin 13.5 g/dL (13.5-17.5); Lymphocytes Absolute Auto 1100 /uL (1100-4500); Mean Corpuscular HGB Conc 33.6 % (30-36); Mean Corpuscular Hemoglobin 28.3 PG (26-34); Monocytes Absolute Auto 1000 /uL (0-900); Monocytes Percent Auto 10.4 % (3-14); Neutrophils Absolute Auto 7100 /uL (1500-7000); Neutrophils Percent Auto 73.9 % (50-75); Platelet Count 287 X10^3/uL (150-400); Red Blood Cell Count 4.79 X10^6/uL (4.5-5.9); Red Cell Distribution Width 14.6 % (11.6-14.8); White Blood Cell Count 9.6 X10^3/uL (4.5-11.0)
[2023-04-06 07:30] LABS: BUN Creatinine Ratio 23.3 (6-22); Blood Urea Nitrogen 31 mg/dL (9-20); Calcium 8.9 mg/dL (8.4-10.2); Carbon Dioxide 21 mmol/L (22-32); Chloride 109 mmol/L (98-107); Estimated Glomerular Filt Rate > 60 mL/min (>60); Glucose 101 mg/dL (70-100); HEMOLYSIS < 15 (0-50); Potassium 3.5 mmol/L (3.4-5.1); Sodium 138 mmol/L (137-145)
[2023-04-06 07:48] VITALS: BP 134/87; PULSE 77; RESP 16; TEMP 36.7; O2SAT 100
[2023-04-06] MEDS: acetaZOLAMIDE 250 MG TABLET 500 MG PO (09:18)
[2023-04-06] MEDS: LINEZOLID 600 MG TABLET PO (09:18)
[2023-04-06] MEDS: FUROSEMIDE 60 MG in SODIUM CHLORIDE 0.9% 50 ML 112 MG IV ×2 (09:18→17:27)
[2023-04-06] MEDS: LOSARTAN 25 MG TABLET PO (09:19)
[2023-04-06] MEDS: SODIUM CHLORIDE 0.9% FLUSH 10 ML IV ×2 (09:19→21:16)
[2023-04-06] MEDS: POTASSIUM CHLORIDE 20 MEQ TAB PO (09:19)
[2023-04-06] MEDS: AMLODIPINE 5 MG TABLET 10 MG PO (09:19)
[2023-04-06] MEDS: SPIRONOLACTONE 25 MG TABLET 12.5 MG PO (09:19)
[2023-04-06] MEDS: METOPROLOL ER 25 MG TABLET PO (09:19)
[2023-04-06] MEDS: ENOXAPARIN 40 MG/0.4 ML SYRINGE SUBCUT (09:20)
--- NOTE | 2023-04-06 09:45 | PC.NURSE ---
Patient is alert and oriented x4, he denies pain. Up independently in his room and to use the bathroom. Medications given and tolerated well. Patient is going to need a new iv as his has infiltrated, ROLLER PICKER to try put a new one in. He is resting and ate well at breakfast.
[2023-04-06] MEDS: cefTRIAXone 1,000 MG in SODIUM CHLORIDE 0.9% 100 ML 200 MG IV (10:36)
[2023-04-06 10:52] VITALS: BP 126/86; PULSE 89; RESP 16; TEMP 36.7; O2SAT 96
[2023-04-06 15:19] VITALS: BP 146/94; PULSE 82; RESP 18; TEMP 36.2; O2SAT 98
--- NOTE | 2023-04-06 17:32 | P.PN_ITS ---
Subjective Subjective Interval history: Patient continues to diurese well by weight. continues to significant scrotal and leg edema though he reports improved fullness feeling. Exam Vital Signs (past 8 hours): - 04/06/23 10:52 04/06/23 15:19 Temperature 98.0 F 97.2 F L Pulse Rate 89 82 Respiratory Rate 16 18 Blood Pressure 126/86 146/94 H Pulse Oximetry 96 98 Oxygen Flow Rate 0 0 Oxygen Delivery Method Room Air Oxygen Flow Rate 0 Narrative Exam Narrative: GEN: no acute distress, obese HEENT: moist mucous membranes, PERRL NECK: trachea midline, no JVD CV: regular rate and rhythm, no murmurs PULM: mild rales ABD: soft, nontender, nondistended, no organomegaly, edema present on abdomen EXT: 1-2+ pitting edema from feet to thighs, scrotum very swollen but no significant erythema NEURO: awake, alert, oriented, no focal deficits Objective Labs 04/06/23 05:55 04/06/23 05:55 Labs: Laboratory Results - last 24 hr 04/06/23 05:55 WBC 9.6 RBC 4.79 Hgb 13.5 Hct 40.2 L MCV 84.0 MCH 28.3 MCHC 33.6 RDW 14.6 Plt Count 287 Neut % (Auto) 73.9 Lymph % (Auto) 11.0 L [place] % (Auto) 10.4 Eos % (Auto) 3.7 Baso % (Auto) 1.0 Neut # (Auto) 7100 H Lymph # (Auto) 1100 [place] # (Auto) 1000 H Eos # (Auto) 400 Baso # (Auto) 100 Sodium 138 Potassium 3.5 Chloride 109 H Carbon Dioxide 21 L BUN 31 H Creatinine 1.33 H Estimated GFR > 60 BUN/Creatinine Ratio 23.3 H Glucose 101 H Calcium 8.9 PFSH Medical History (Updated 04/05/23 @ 15:34 by Deven Heard DO) HTN (hypertension) Family History (Updated 04/02/23 @ 22:15 by Astrid Spencer RN) Brother Age: 47 No problems noted. Mother Age: 71 Skin cancer NSTEMI (non-ST elevated myocardial infarction) Cancer Hypertension Sister Age: 43 Skin cancer Father Stroke due to embolism of left middle cerebral artery Hypertension Social History household members: family Smoking Status: Never smoker alcohol intake: never Assessment & Plan Assessment and plan (1) Acute HF (heart failure): Problem details: Acute systolic heart failure Status: Acute Plan: Echo with EF 20-25%, global LV hypokinesis Likely result of longstanding, untreated HTN Now on beta xiomy, 25 mg daily increase furosemide to 80 mg IV BID, weight is coming down as expected but I&O is near 0. ordered for stict Is & Os. Continue daily weights. losartan, spironolactone started per cards will need ischemic eval with nuclear stress once euvolemic, unlikely to achieve this prior to tomorrow. If still here Sunday will order over the . (2) Cellulitis of scrotum: Status: Acute Plan: patient noted fevers at home to 103F, afebrile here US scrotum suggested possible cellulitis with soft tissue swelling WBC elevated initially, now normal continue rocephin for 5 days (1 more day remaining), switched vanc to linezolid to limit 250cc IVF with each vanc dose. Will discontinue antibiotics today. (3) HTN (hypertension): Status: Acute Plan: Severe on presentation. Start losartan, amlodipine and spironolactone. Improving. Started beta xiomy as noted above as well. (4) Acute kidney injury superimposed on chronic kidney disease: Status: Acute Plan: Likely secondary to volume overload, JARED has been improving thus far with diuresis. Unknown baseline creatinine but likely around 1.3. Cr as high as 1.6 on 04/03. Plan Dispo: 2-3 more days for diuresis then nuclear stress. Assessment & Plan narrative: Dispo: discharge home, timing unclear as need to get to near euvolemic prior to discharge as there is need for stress testing prior to discharge given patient is without PCP or business management specialist.
[2023-04-06 20:55] VITALS: BP 138/91; PULSE 70; RESP 18; TEMP 36.6; O2SAT 96
[2023-04-07] VITALS (9 sets, daily range): BP systolic 129–164; BP diastolic 71–113; PULSE 66–103; RESP 16–20; TEMP 36.2–36.4; O2SAT 95–98
[2023-04-07 06:32] LABS: Add Manual Diff / Slide Review NO; Basophils Absolute Auto 100 /uL (0-100); Eosinophils Absolute Auto 400 /uL (0-450); Eosinophils Percent Auto 4.3 % (2-4); Hematocrit 39.8 % (41-53); Hemoglobin 13.3 g/dL (13.5-17.5); Lymphocytes Absolute Auto 1400 /uL (1100-4500); Mean Corpuscular HGB Conc 33.4 % (30-36); Mean Corpuscular Hemoglobin 28.4 PG (26-34); Mean Corpuscular Volume 84.9 fL (80-100); Monocytes Absolute Auto 1000 /uL (0-900); Monocytes Percent Auto 10.8 % (3-14); Neutrophils Absolute Auto 6200 /uL (1500-7000); Neutrophils Percent Auto 68.9 % (50-75); Platelet Count 274 X10^3/uL (150-400); Red Blood Cell Count 4.69 X10^6/uL (4.5-5.9); Red Cell Distribution Width 14.8 % (11.6-14.8); White Blood Cell Count 9.1 X10^3/uL (4.5-11.0)
[2023-04-07 06:44] LABS: BUN Creatinine Ratio 22.1 (6-22); Blood Urea Nitrogen 31 mg/dL (9-20); Calcium 8.9 mg/dL (8.4-10.2); Carbon Dioxide 21 mmol/L (22-32); Chloride 108 mmol/L (98-107); Estimated Glomerular Filt Rate > 60 mL/min (>60); Glucose 98 mg/dL (70-100); HEMOLYSIS < 15 (0-50); Sodium 138 mmol/L (137-145)
[2023-04-07] MEDS: POTASSIUM CHLORIDE 20 MEQ TAB PO (09:57)
[2023-04-07] MEDS: ENOXAPARIN 40 MG/0.4 ML SYRINGE SUBCUT (09:57)
[2023-04-07] MEDS: SODIUM CHLORIDE 0.9% FLUSH 10 ML IV ×3 (09:58→20:00)
[2023-04-07] MEDS: acetaZOLAMIDE 250 MG TABLET 500 MG PO (09:58)
[2023-04-07] MEDS: SPIRONOLACTONE 25 MG TABLET 12.5 MG PO (10:01)
[2023-04-07] MEDS: LOSARTAN 25 MG TABLET PO (10:03)
[2023-04-07] MEDS: METOPROLOL ER 25 MG TABLET PO (10:03)
[2023-04-07] MEDS: AMLODIPINE 5 MG TABLET 10 MG PO (10:04)
[2023-04-07] MEDS: FUROSEMIDE 80 MG in SODIUM CHLORIDE 0.9% 50 ML 112 MG IV ×2 (11:09→16:22)
--- NOTE | 2023-04-07 16:42 | PM.PN.1 ---
Subjective Subjective Interval history: Patient continues to diurese well but conflicting info daily between weight and I&O. continues to significant scrotal and leg edema though he reports improved somewhat. Exam Vital Signs (past 8 hours): - 04/07/23 09:10 04/07/23 10:03 04/07/23 10:03 Temperature Pulse Rate 79 79 Respiratory Rate Blood Pressure 148/82 H 148/84 H 148/84 H Pulse Oximetry Oxygen Flow Rate 04/07/23 10:45 04/07/23 14:48 04/07/23 16:29 Temperature 97.5 F L 97.5 F L Pulse Rate 87 103 H 70 Respiratory Rate 16 20 Blood Pressure 145/95 H 147/71 H 132/77 Pulse Oximetry 98 97 Oxygen Flow Rate 0 0 Oxygen Delivery Method Room Air Oxygen Flow Rate 0 Narrative Exam Narrative: GEN: no acute distress, obese HEENT: moist mucous membranes, PERRL NECK: trachea midline, no JVD CV: regular rate and rhythm, no murmurs PULM: mild rales ABD: soft, nontender, nondistended, no organomegaly, edema present on abdomen EXT: 1-2+ pitting edema from feet to thighs, scrotum very swollen but no significant erythema NEURO: awake, alert, oriented, no focal deficits Objective Labs 04/07/23 05:45 04/07/23 05:45 Labs: Laboratory Results - last 24 hr 04/07/23 05:45 WBC 9.1 RBC 4.69 Hgb 13.3 L Hct 39.8 L MCV 84.9 MCH 28.4 MCHC 33.4 RDW 14.8 Plt Count 274 Neut % (Auto) 68.9 Lymph % (Auto) 15.0 L [place] % (Auto) 10.8 Eos % (Auto) 4.3 H Baso % (Auto) 1.0 Neut # (Auto) 6200 Lymph # (Auto) 1400 [place] # (Auto) 1000 H Eos # (Auto) 400 Baso # (Auto) 100 Sodium 138 Potassium 4.0 Chloride 108 H Carbon Dioxide 21 L BUN 31 H Creatinine 1.40 H Estimated GFR > 60 BUN/Creatinine Ratio 22.1 H Glucose 98 Calcium 8.9 PFSH Medical History (Updated 04/05/23 @ 15:34 by Deven Heard DO) HTN (hypertension) Family History (Updated 04/02/23 @ 22:15 by Astrid Spencer RN) Brother Age: 47 No problems noted. Mother Age: 71 Skin cancer NSTEMI (non-ST elevated myocardial infarction) Cancer Hypertension Sister Age: 43 Skin cancer Father Stroke due to embolism of left middle cerebral artery Hypertension Social History household members: family Smoking Status: Never smoker alcohol intake: never Assessment & Plan Assessment and plan (1) Acute HF (heart failure): Problem details: Acute systolic heart failure Status: Acute Plan: Echo with EF 20-25%, global LV hypokinesis Likely result of longstanding, untreated HTN, but underlying etiology not known. Now on beta xiomy, 25 mg daily increased furosemide to 80 mg IV BID. He remains on acetazolemide as well. ordered for stict Is & Os. Continue daily weights. There is conflicting data daily between intake and output and daily weights. Though overall trend continues to improve. losartan, spironolactone started per cards will need ischemic eval with nuclear stress once euvolemic, timing of this is still likely days away. 04/07 > creatinine stable but slow uptrend, may need to back off on diuresis in the coming days. (2) Cellulitis of scrotum: Status: Acute Plan: patient noted fevers at home to 103F, afebrile here US scrotum suggested possible cellulitis with soft tissue swelling WBC elevated initially, now normal continued rocephin for 5 days, switched vanc to linezolid to limit 250cc IVF with each vanc dose. Antibiotics now discontinued. (3) HTN (hypertension): Status: Acute Plan: Severe on presentation. Started losartan, amlodipine and spironolactone. Improving. Started beta xiomy as noted above as well. (4) Acute kidney injury superimposed on chronic kidney disease: Status: Acute Plan: Likely secondary to volume overload, JARED has been improving thus far with diuresis. Unknown baseline creatinine but likely around 1.3. Cr as high as 1.6 on 04/03. Continue to monitor with continued diuresis. Plan Dispo: 2-3 more days for diuresis then nuclear stress. Assessment & Plan narrative: Dispo: discharge home, timing unclear as need to get to near euvolemic prior to discharge as there is need for stress testing prior to discharge given patient is without PCP or credit or loans officer.
[2023-04-08] VITALS (9 sets, daily range): BP systolic 125–146; BP diastolic 71–98; PULSE 67–75; RESP 16–20; TEMP 36.1–36.6; O2SAT 95–99
[2023-04-08] MEDS: SPIRONOLACTONE 25 MG TABLET 12.5 MG PO (08:19)
[2023-04-08] MEDS: acetaZOLAMIDE 250 MG TABLET 500 MG PO (08:19)
[2023-04-08] MEDS: LOSARTAN 25 MG TABLET PO (08:20)
[2023-04-08] MEDS: POTASSIUM CHLORIDE 20 MEQ TAB PO (08:21)
[2023-04-08] MEDS: AMLODIPINE 5 MG TABLET 10 MG PO (08:21)
[2023-04-08] MEDS: METOPROLOL ER 25 MG TABLET PO (08:21)
[2023-04-08] MEDS: FUROSEMIDE 80 MG in SODIUM CHLORIDE 0.9% 50 ML 112 MG IV (08:27)
[2023-04-08] MEDS: SODIUM CHLORIDE 0.9% FLUSH 10 ML IV ×2 (09:00→20:37)
[2023-04-08] MEDS: ENOXAPARIN 40 MG/0.4 ML SYRINGE SUBCUT (09:00)
--- NOTE | 2023-04-08 10:49 | PM.PN.1 ---
Subjective Subjective Interval history: Patient continues to diurese well but conflicting info daily between weight and I&O. continues to significant scrotal and leg edema though he reports improved somewhat. Exam Vital Signs (past 8 hours): - 04/08/23 04:10 04/08/23 08:00 04/08/23 08:20 Temperature 97.0 F L 97.8 F Pulse Rate 74 74 74 Respiratory Rate 20 16 Blood Pressure 143/93 H 144/98 H 144/98 H Pulse Oximetry 96 98 Oxygen Flow Rate 0 0 04/08/23 08:21 Temperature Pulse Rate 74 Respiratory Rate Blood Pressure 144/98 H Pulse Oximetry Oxygen Flow Rate Oxygen Delivery Method Room Air Oxygen Flow Rate 0 Narrative Exam Narrative: GEN: no acute distress, obese HEENT: moist mucous membranes, PERRL NECK: trachea midline, no JVD CV: regular rate and rhythm, no murmurs PULM: mild rales ABD: soft, nontender, nondistended, no organomegaly, edema present on abdomen EXT: 1-2+ pitting edema from feet to thighs, scrotum very swollen but no significant erythema NEURO: awake, alert, oriented, no focal deficits Objective Labs 04/07/23 05:45 04/07/23 05:45 [facility] Medical History (Updated 04/05/23 @ 15:34 by Deven Heard DO) HTN (hypertension) Family History (Updated 04/02/23 @ 22:15 by Astrid Spencer RN) Brother Age: 47 No problems noted. Mother Age: 71 Skin cancer NSTEMI (non-ST elevated myocardial infarction) Cancer Hypertension Sister Age: 43 Skin cancer Father Stroke due to embolism of left middle cerebral artery Hypertension Social History household members: family Smoking Status: Never smoker alcohol intake: never Assessment & Plan Assessment and plan (1) Acute HF (heart failure): Problem details: Acute systolic heart failure Status: Acute Plan: Echo with EF 20-25%, global LV hypokinesis Likely result of longstanding, untreated HTN, but underlying etiology not known. Now on beta xiomy, 25 mg daily increased furosemide to 80 mg IV BID. He remains on acetazolemide as well. ordered for stict Is & Os. Continue daily weights. There is conflicting data daily between intake and output and daily weights. Though overall trend continues to improve. losartan, spironolactone started per cards will need ischemic eval with nuclear stress once euvolemic, timing of this is still likely days away. 04/07 > creatinine stable but slow uptrend, may need to back off on diuresis in the coming days. (2) Cellulitis of scrotum: Status: Acute Plan: patient noted fevers at home to 103F, afebrile here US scrotum suggested possible cellulitis with soft tissue swelling WBC elevated initially, now normal continued rocephin for 5 days, switched vanc to linezolid to limit 250cc IVF with each vanc dose. Antibiotics now discontinued. (3) HTN (hypertension): Status: Acute Plan: Severe on presentation. Started losartan, amlodipine and spironolactone. Improving. Started beta xiomy as noted above as well. (4) Acute kidney injury superimposed on chronic kidney disease: Status: Acute Plan: Likely secondary to volume overload, JARED has been improving thus far with diuresis. Unknown baseline creatinine but likely around 1.3. Cr as high as 1.6 on 04/03. Continue to monitor with continued diuresis. Plan Dispo: 2-3 more days for diuresis then nuclear stress. Assessment & Plan narrative: Dispo: discharge home, timing unclear as need to get to near euvolemic prior to discharge as there is need for stress testing prior to discharge given patient is without PCP or waterproofing supervisor.
--- NOTE | 2023-04-08 10:53 | P.PN_ITS ---
Subjective Subjective Interval history: continues to significant scrotal and leg edema, no reported improvement today. Exam Vital Signs (past 8 hours): - 04/08/23 04:10 04/08/23 08:00 04/08/23 08:20 Temperature 97.0 F L 97.8 F Pulse Rate 74 74 74 Respiratory Rate 20 16 Blood Pressure 143/93 H 144/98 H 144/98 H Pulse Oximetry 96 98 Oxygen Flow Rate 0 0 04/08/23 08:21 Temperature Pulse Rate 74 Respiratory Rate Blood Pressure 144/98 H Pulse Oximetry Oxygen Flow Rate Oxygen Delivery Method Room Air Oxygen Flow Rate 0 Narrative Exam Narrative: GEN: no acute distress, obese HEENT: moist mucous membranes, PERRL NECK: trachea midline, no JVD CV: regular rate and rhythm, no murmurs PULM: mild rales ABD: soft, nontender, nondistended, no organomegaly, edema present on abdomen EXT: 1-2+ pitting edema from feet to thighs, scrotum very swollen but no significant erythema NEURO: awake, alert, oriented, no focal deficits Objective Labs 04/07/23 05:45 04/07/23 05:45 [facility] Medical History (Updated 04/05/23 @ 15:34 by Deven Heard DO) HTN (hypertension) Family History (Updated 04/02/23 @ 22:15 by Astrid Spencer RN) Brother Age: 47 No problems noted. Mother Age: 71 Skin cancer NSTEMI (non-ST elevated myocardial infarction) Cancer Hypertension Sister Age: 43 Skin cancer Father Stroke due to embolism of left middle cerebral artery Hypertension Social History household members: family Smoking Status: Never smoker alcohol intake: never Assessment & Plan Assessment and plan (1) Acute HF (heart failure): Problem details: Acute systolic heart failure Status: Acute Plan: Echo with EF 20-25%, global LV hypokinesis Likely result of longstanding, untreated HTN, but underlying etiology not known. Now on beta xiomy, 25 mg daily increased furosemide to 80 mg IV BID still with no improvement, will change to 60 mg TID today. He remains on acetazolemide as well. ordered for stict Is & Os. Continue daily weights, will order to check on standing scale daily to maintain consistency. There is conflicting data daily between intake and output and daily weights. Though overall trend continues to improve. losartan, spironolactone started per cards will need ischemic eval with nuclear stress once euvolemic, timing of this is still likely days away. 04/07 > creatinine stable but slow uptrend, may need to back off on diuresis in the coming days. (2) Cellulitis of scrotum: Status: Acute Plan: patient noted fevers at home to 103F, afebrile here US scrotum suggested possible cellulitis with soft tissue swelling WBC elevated initially, now normal continued rocephin for 5 days, switched vanc to linezolid to limit 250cc IVF with each vanc dose. Antibiotics now discontinued. (3) HTN (hypertension): Status: Acute Plan: Severe on presentation. Started losartan, amlodipine and spironolactone. Improving. Started beta xiomy as noted above as well. (4) Acute kidney injury superimposed on chronic kidney disease: Status: Acute Plan: Likely secondary to volume overload, JARED has been improving thus far with diuresis. Unknown baseline creatinine but likely around 1.3. Cr as high as 1.6 on 04/03. Continue to monitor with continued diuresis. Plan Dispo: 2-3 more days for diuresis then nuclear stress. Assessment & Plan narrative: Dispo: discharge home, timing unclear as need to get to near euvolemic prior to discharge as there is need for stress testing prior to discharge given patient is without PCP or railroad wheels and axles inspector.
[2023-04-08] MEDS: FUROSEMIDE 60 MG in SODIUM CHLORIDE 0.9% 50 ML 112 MG IV ×2 (11:51→18:03)
--- NOTE | 2023-04-08 13:09 | CM.DPC ---
DCP Cont. Reviewed EMR and team rounds for status updates. . Per Dr. Heard, he will be here longer than Sunday, no clear d/c plan due to cont. medical instability. Cont. to follow.
[2023-04-08 16:42] LABS: Adenovirus Not Detected (Not Detect); B. parapertussis Not Detected (Not Detecte); Bordetella pertussis Not Detected (Not Detect); Chlamydophila pneumoniae Not Detected (Not Detect); Coronavirus 229E Not Detected (Not Detect); Coronavirus HKU1 Not Detected (Not Detect); Coronavirus NL 63 Not Detected (Not Detect); Coronavirus OC43 Not Detected (Not Detect); Human Metapneumovirus Not Detected (Not Detect); Human Rhinovirus/Enterovirus Not Detected (Not Detect); Influenza A Not Detected (Not Detect); Influenza B Not Detected (Not Detect); Mycoplasma pneumoniae Not Detected (Not Detect); Parainfluenza Virus 1 Not Detected (Not Detect); Parainfluenza Virus 2 Not Detected (Not Detect); Parainfluenza Virus 3 Not Detected (Not Detect); Parainfluenza Virus 4 Not Detected (Not Detect); Respiratory Syncytial Virus Not Detected (Not Detect); SARS- CoV-2 Not Detected (Not Detecte)
--- NOTE | 2023-04-08 17:13 | PC.NURSE ---
Day shift: Patient stated mild constricting feeling with scratchy throat this afternoon. Pt has mild, non productive cough. He stated this is often his first symptom before getting sick. Let MD Heard know, who ordered respiratory panel. Results came back negative. VS WNL. Will continue to monitor.
[2023-04-09] VITALS (8 sets, daily range): BP systolic 129–149; BP diastolic 63–88; PULSE 68–81; RESP 16–20; TEMP 35.9–36.5; O2SAT 96–98
[2023-04-09 04:53] LABS: Add Manual Diff / Slide Review NO; Basophils Absolute Auto 100 /uL (0-100); Basophils Percent Auto 1.4 % (0-2); Eosinophils Absolute Auto 300 /uL (0-450); Eosinophils Percent Auto 3.1 % (2-4); Hematocrit 39.4 % (41-53); Hemoglobin 13.2 g/dL (13.5-17.5); Lymphocytes Absolute Auto 1300 /uL (1100-4500); Mean Corpuscular HGB Conc 33.4 % (30-36); Mean Corpuscular Hemoglobin 28.2 PG (26-34); Mean Corpuscular Volume 84.3 fL (80-100); Monocytes Absolute Auto 1000 /uL (0-900); Monocytes Percent Auto 10.7 % (3-14); Neutrophils Absolute Auto 6600 /uL (1500-7000); Neutrophils Percent Auto 70.8 % (50-75); Platelet Count 267 X10^3/uL (150-400); Red Blood Cell Count 4.68 X10^6/uL (4.5-5.9); Red Cell Distribution Width 14.4 % (11.6-14.8); White Blood Cell Count 9.3 X10^3/uL (4.5-11.0)
[2023-04-09 05:26] LABS: BUN Creatinine Ratio 29.4 (6-22); Blood Urea Nitrogen 35 mg/dL (9-20); Calcium 8.9 mg/dL (8.4-10.2); Carbon Dioxide 21 mmol/L (22-32); Chloride 109 mmol/L (98-107); Estimated Glomerular Filt Rate > 60 mL/min (>60); Glucose 100 mg/dL (70-100); HEMOLYSIS < 15 (0-50); Magnesium 2.4 mg/dL (1.6-2.3); Potassium 3.8 mmol/L (3.4-5.1); Sodium 138 mmol/L (137-145)
[2023-04-09] MEDS: FUROSEMIDE 60 MG in SODIUM CHLORIDE 0.9% 50 ML 112 MG IV ×3 (06:00→18:07)
[2023-04-09] MEDS: METOPROLOL ER 25 MG TABLET PO (08:30)
[2023-04-09] MEDS: SPIRONOLACTONE 25 MG TABLET 12.5 MG PO (08:30)
[2023-04-09] MEDS: AMLODIPINE 5 MG TABLET 10 MG PO (08:32)
[2023-04-09] MEDS: LOSARTAN 25 MG TABLET PO (08:32)
[2023-04-09] MEDS: ENOXAPARIN 40 MG/0.4 ML SYRINGE SUBCUT (08:33)
[2023-04-09] MEDS: acetaZOLAMIDE 250 MG TABLET 500 MG PO (08:33)
[2023-04-09] MEDS: POTASSIUM CHLORIDE 20 MEQ TAB PO (08:33)
--- NOTE | 2023-04-09 10:10 | P.PN_ITS ---
Subjective Subjective Interval history: continues to significant scrotal and leg edema, but much improved after increasing to TID diuresis yesterday. Net negative 4L since yesterday. Exam Vital Signs (past 8 hours): - 04/09/23 03:26 04/09/23 08:03 04/09/23 08:30 Temperature 96.6 F L 97.3 F L Pulse Rate 81 68 68 Respiratory Rate 16 18 Blood Pressure 132/86 140/88 140/88 Pulse Oximetry 98 96 Oxygen Flow Rate 0 04/09/23 08:32 Temperature Pulse Rate 68 Respiratory Rate Blood Pressure 140/88 Pulse Oximetry Oxygen Flow Rate Oxygen Delivery Method Room Air Oxygen Flow Rate 0 Narrative Exam Narrative: GEN: no acute distress, obese HEENT: moist mucous membranes, PERRL NECK: trachea midline, no JVD CV: regular rate and rhythm, no murmurs PULM: mild rales ABD: soft, nontender, nondistended, no organomegaly, edema present on abdomen EXT: 1+ pitting edema from feet to thigh, scrotum improved swelling but no significant erythema NEURO: awake, alert, oriented, no focal deficits Objective Labs 04/09/23 04:30 04/09/23 04:30 Labs: Laboratory Results - last 24 hr 04/08/23 04/09/23 15:30 04:30 WBC 9.3 RBC 4.68 Hgb 13.2 L Hct 39.4 L MCV 84.3 MCH 28.2 MCHC 33.4 RDW 14.4 Plt Count 267 Neut % (Auto) 70.8 Lymph % (Auto) 14.0 L [place] % (Auto) 10.7 Eos % (Auto) 3.1 Baso % (Auto) 1.4 Neut # (Auto) 6600 Lymph # (Auto) 1300 [place] # (Auto) 1000 H Eos # (Auto) 300 Baso # (Auto) 100 Sodium 138 Potassium 3.8 Chloride 109 H Carbon Dioxide 21 L BUN 35 H Creatinine 1.19 Estimated GFR > 60 BUN/Creatinine Ratio 29.4 H Glucose 100 Calcium 8.9 Magnesium 2.4 H Chlamy pneumoniae PCR Not detected Adenovirus (PCR) Not detected B.parapertussis DNA PCR Not detected Coronavirus OC43 (PCR) Not detected Coronavirus HKU1 (PCR) Not detected Coronavirus 229E (PCR) Not detected SARS-CoV-2 (PCR) Not detected Coronavirus NL63 (PCR) Not detected Human Metapneumovir PCR Not detected Influenza Type A (PCR) Not detected Influenza Type B (PCR) Not detected M. pneumoniae (PCR) Not detected Parainfluenza 1 (PCR) Not detected Parainfluenza 2 (PCR) Not detected Parainfluenza 3 (PCR) Not detected Parainfluenza 4 (PCR) Not detected RSV (PCR) Not detected Entero/Rhino (PCR) Not detected PFSH Medical History (Updated 04/05/23 @ 15:34 by Deven Heard DO) HTN (hypertension) Family History (Updated 04/02/23 @ 22:15 by Astrid Spencer RN) Brother Age: 47 No problems noted. Mother Age: 71 Skin cancer NSTEMI (non-ST elevated myocardial infarction) Cancer Hypertension Sister Age: 43 Skin cancer Father Stroke due to embolism of left middle cerebral artery Hypertension Social History household members: family Smoking Status: Never smoker alcohol intake: never Assessment & Plan Assessment and plan (1) Acute HF (heart failure): Problem details: Acute systolic heart failure Status: Acute Plan: Echo with EF 20-25%, global LV hypokinesis Likely result of longstanding, untreated HTN, but underlying etiology not known. Now on beta xiomy, 25 mg daily. increased furosemide to 80 mg IV BID still with no improvement, will change to 60 mg TID today. He remains on acetazolemide as well. ordered for stict Is & Os. Continue daily weights, will order to check on standing scale daily to maintain consistency. There is conflicting data daily between intake and output and daily weights. Though overall trend continues to improve. losartan, spironolactone started per cards. Losartan increase ordered for tomorrow to 50 mg, BP borderline elevated today. will need ischemic eval with nuclear stress once euvolemic, timing of this hopefully in a couple of days. Improved creatinine with increased diuresis yesterday, continue aggressive diuresis. (2) Cellulitis of scrotum: Status: Acute Plan: patient noted fevers at home to 103F, afebrile here US scrotum suggested possible cellulitis with soft tissue swelling WBC elevated initially, now normal continued rocephin for 5 days, switched vanc to linezolid to limit 250cc IVF with each vanc dose. Antibiotics now discontinued. (3) HTN (hypertension): Status: Acute Plan: Severe on presentation. Started losartan, amlodipine and spironolactone. Improving. Started beta xiomy as noted above as well. (4) Acute kidney injury superimposed on chronic kidney disease: Status: Acute Plan: Likely secondary to volume overload, JARED has been improving thus far with diuresis. Unknown baseline creatinine but likely around 1.3. Cr as high as 1.6 on 19 today. Continue to monitor with continued diuresis. Plan Dispo: 2-3 more days for diuresis then nuclear stress. Assessment & Plan narrative: Dispo: discharge home, timing unclear as need to get to near euvolemic prior to discharge as there is need for stress testing prior to discharge given patient is without PCP or verifying specialist. Obtain PCP follow up appointment prior to discharge.
[2023-04-09] MEDS: SODIUM CHLORIDE 0.9% FLUSH 10 ML IV ×2 (11:33→20:46)
[2023-04-10] VITALS (7 sets, daily range): BP systolic 131–138; BP diastolic 76–86; PULSE 65–73; RESP 16–20; TEMP 36.1–36.5; O2SAT 95–98
[2023-04-10] MEDS: FUROSEMIDE 60 MG in SODIUM CHLORIDE 0.9% 50 ML 112 MG IV ×3 (06:30→18:11)
[2023-04-10 06:48] LABS: Add Manual Diff / Slide Review NO; Basophils Absolute Auto 100 /uL (0-100); Eosinophils Absolute Auto 300 /uL (0-450); Eosinophils Percent Auto 3.2 % (2-4); Hematocrit 39.6 % (41-53); Hemoglobin 13.3 g/dL (13.5-17.5); Lymphocytes Absolute Auto 1200 /uL (1100-4500); Lymphocytes Percent Auto 12.8 % (25-40); Mean Corpuscular HGB Conc 33.7 % (30-36); Mean Corpuscular Hemoglobin 28.3 PG (26-34); Mean Corpuscular Volume 83.9 fL (80-100); Monocytes Absolute Auto 900 /uL (0-900); Monocytes Percent Auto 10.1 % (3-14); Neutrophils Absolute Auto 6800 /uL (1500-7000); Neutrophils Percent Auto 72.9 % (50-75); Platelet Count 275 X10^3/uL (150-400); Red Blood Cell Count 4.72 X10^6/uL (4.5-5.9); White Blood Cell Count 9.3 X10^3/uL (4.5-11.0)
[2023-04-10 08:36] LABS: BUN Creatinine Ratio 28.7 (6-22); Blood Urea Nitrogen 35 mg/dL (9-20); Calcium 9.1 mg/dL (8.4-10.2); Carbon Dioxide 21 mmol/L (22-32); Chloride 108 mmol/L (98-107); Estimated Glomerular Filt Rate > 60 mL/min (>60); Glucose 99 mg/dL (70-100); HEMOLYSIS < 15 (0-50); Magnesium 2.4 mg/dL (1.6-2.3); Sodium 138 mmol/L (137-145)
[2023-04-10] MEDS: AMLODIPINE 5 MG TABLET 10 MG PO (09:08)
[2023-04-10] MEDS: POTASSIUM CHLORIDE 20 MEQ TAB PO (09:08)
[2023-04-10] MEDS: acetaZOLAMIDE 250 MG TABLET 500 MG PO (09:08)
[2023-04-10] MEDS: LOSARTAN 25 MG TABLET 50 MG PO (09:09)
[2023-04-10] MEDS: SPIRONOLACTONE 25 MG TABLET 12.5 MG PO (09:09)
[2023-04-10] MEDS: METOPROLOL ER 25 MG TABLET PO (09:09)
[2023-04-10] MEDS: SODIUM CHLORIDE 0.9% FLUSH 10 ML IV ×2 (09:11→19:28)
[2023-04-10] MEDS: ENOXAPARIN 40 MG/0.4 ML SYRINGE SUBCUT (09:14)
--- NOTE | 2023-04-10 19:17 | PM.PN.1 ---
Subjective Subjective Date Patient Seen: 04/10/23 Time Patient Seen: 08:00 Interval history: He still has leg swelling but it is significantly improved. He is over 16kg down in weight and ~21L net negative. He has no shortness of breath or chest pain now. Exam Vital Signs (past 8 hours): - 04/10/23 12:17 04/10/23 16:00 Temperature 97.2 F L 97.6 F Pulse Rate 70 65 Respiratory Rate 18 16 Blood Pressure 138/83 132/76 Pulse Oximetry 97 96 Oxygen Flow Rate 0 Oxygen Delivery Method Room Air Oxygen Flow Rate 0 Narrative Exam Narrative: GEN: no acute distress, obese HEENT: moist mucous membranes, PERRL NECK: trachea midline, no JVD CV: regular rate and rhythm, no murmurs PULM: clear bilaterally ABD: soft, nontender, nondistended, no organomegaly, edema present on abdomen EXT: 1+ pitting edema from feet to thigh, scrotum improved swelling but no significant erythema NEURO: awake, alert, oriented, no focal deficits Objective Labs 04/10/23 05:30 04/10/23 05:30 Labs: Laboratory Results - last 24 hr 04/10/23 05:30 WBC 9.3 RBC 4.72 Hgb 13.3 L Hct 39.6 L MCV 83.9 MCH 28.3 MCHC 33.7 RDW 14.0 Plt Count 275 Neut % (Auto) 72.9 Lymph % (Auto) 12.8 L [place] % (Auto) 10.1 Eos % (Auto) 3.2 Baso % (Auto) 1.0 Neut # (Auto) 6800 Lymph # (Auto) 1200 [place] # (Auto) 900 Eos # (Auto) 300 Baso # (Auto) 100 Sodium 138 Potassium 4.0 Chloride 108 H Carbon Dioxide 21 L BUN 35 H Creatinine 1.22 Estimated GFR > 60 BUN/Creatinine Ratio 28.7 H Glucose 99 Calcium 9.1 Magnesium 2.4 H PFS Medical History (Updated 04/05/23 @ 15:34 by Deven Heard DO) HTN (hypertension) Family History (Updated 04/02/23 @ 22:15 by Astrid Spencer RN) Brother Age: 47 No problems noted. Mother Age: 71 Skin cancer NSTEMI (non-ST elevated myocardial infarction) Cancer Hypertension Sister Age: 43 Skin cancer Father Stroke due to embolism of left middle cerebral artery Hypertension Social History household members: family Smoking Status: Never smoker alcohol intake: never Assessment & Plan Assessment and plan (1) Acute HF (heart failure): Problem details: Acute systolic heart failure Status: Acute Plan: -Echo with EF 20-25%, global LV hypokinesis -Likely result of longstanding, untreated HTN, but underlying etiology not known. -Now on beta xiomy, 25 mg daily. -increased furosemide to 80 mg IV BID still with no improvement, will change to 60 mg TID today. He remains on acetazolemide as well. ordered for stict Is & Os. Continue daily weights, will order to check on standing scale daily to maintain consistency. There is conflicting data daily between intake and output and daily weights. Though overall trend continues to improve. losartan, spironolactone started per cards. Losartan increase ordered for tomorrow to 50 mg, BP borderline elevated today. -plan for stress test tomorrow -Improved creatinine with increased diuresis yesterday, continue aggressive diuresis. (2) Cellulitis of scrotum: Status: Acute Plan: patient noted fevers at home to 103F, afebrile here US scrotum suggested possible cellulitis with soft tissue swelling WBC elevated initially, now normal continued rocephin for 5 days, switched vanc to linezolid to limit 250cc IVF with each vanc dose. Antibiotics now discontinued. (3) HTN (hypertension): Status: Acute Plan: Severe on presentation. Started losartan, amlodipine and spironolactone. Improving. Started beta xiomy as noted above as well. (4) Acute kidney injury superimposed on chronic kidney disease: Status: Acute Plan: Likely secondary to volume overload, JARED has been improving thus far with diuresis. Unknown baseline creatinine but likely around 1.3. Cr as high as 1.6 on 04/03. .19 today. Continue to monitor with continued diuresis. Plan Dispo: 2-3 more days for diuresis then nuclear stress. Assessment & Plan narrative: .
[2023-04-11] VITALS (7 sets, daily range): BP systolic 123–155; BP diastolic 65–96; PULSE 65–77; RESP 16–20; TEMP 36.4–37.2; O2SAT 96–99
[2023-04-11] MEDS: SODIUM CHLORIDE 0.9% FLUSH 10 ML IV ×4 (05:29→20:53)
[2023-04-11] MEDS: FUROSEMIDE 60 MG in SODIUM CHLORIDE 0.9% 50 ML 112 MG IV ×2 (05:33→17:15)
[2023-04-11 05:48] LABS: Add Manual Diff / Slide Review NO; Basophils Absolute Auto 100 /uL (0-100); Basophils Percent Auto 0.9 % (0-2); Eosinophils Absolute Auto 300 /uL (0-450); Hemoglobin 14.5 g/dL (13.5-17.5); Lymphocytes Absolute Auto 1200 /uL (1100-4500); Lymphocytes Percent Auto 11.7 % (25-40); Mean Corpuscular HGB Conc 33.6 % (30-36); Mean Corpuscular Hemoglobin 28.4 PG (26-34); Mean Corpuscular Volume 84.6 fL (80-100); Monocytes Absolute Auto 1000 /uL (0-900); Monocytes Percent Auto 9.8 % (3-14); Neutrophils Absolute Auto 8000 /uL (1500-7000); Neutrophils Percent Auto 74.6 % (50-75); Platelet Count 303 X10^3/uL (150-400); Red Blood Cell Count 5.09 X10^6/uL (4.5-5.9); Red Cell Distribution Width 14.5 % (11.6-14.8); White Blood Cell Count 10.7 X10^3/uL (4.5-11.0)
[2023-04-11 06:00] LABS: BUN Creatinine Ratio 29.9 (6-22); Blood Urea Nitrogen 38 mg/dL (9-20); Calcium 9.6 mg/dL (8.4-10.2); Carbon Dioxide 20 mmol/L (22-32); Chloride 109 mmol/L (98-107); Estimated Glomerular Filt Rate > 60 mL/min (>60); Glucose 101 mg/dL (70-100); HEMOLYSIS < 15 (0-50); Magnesium 2.4 mg/dL (1.6-2.3); Sodium 139 mmol/L (137-145)
[2023-04-11 06:53] LABS: Metanephrine,Plasma 41.6 pg/mL (0.0-88.0)
[2023-04-11] MEDS: ENOXAPARIN 40 MG/0.4 ML SYRINGE SUBCUT (09:48)
[2023-04-11] MEDS: LOSARTAN 25 MG TABLET 50 MG PO (09:49)
[2023-04-11] MEDS: METOPROLOL ER 25 MG TABLET PO (09:49)
[2023-04-11] MEDS: AMLODIPINE 5 MG TABLET 10 MG PO (09:49)
[2023-04-11] MEDS: POTASSIUM CHLORIDE 20 MEQ TAB PO (09:50)
[2023-04-11] MEDS: SPIRONOLACTONE 25 MG TABLET 12.5 MG PO (09:50)
--- NOTE | 2023-04-11 15:41 | P.PN_ITS ---
Subjective Subjective Date Patient Seen: 04/11/23 Time Patient Seen: 08:00 Interval history: He still has leg swelling but it is significantly improved. He is over 16kg down in weight and ~23L net negative. He has no shortness of breath or chest pain now. Exam Vital Signs (past 8 hours): - 04/11/23 09:30 04/11/23 09:49 04/11/23 09:49 Temperature Pulse Rate 65 65 Respiratory Rate Blood Pressure 123/65 123/76 Pulse Oximetry Oxygen Delivery Method Room Air 04/11/23 09:51 04/11/23 13:00 Temperature 97.7 F 98.0 F Pulse Rate 65 Respiratory Rate 18 18 Blood Pressure 123/76 155/84 H Pulse Oximetry 97 97 Oxygen Delivery Method Oxygen Delivery Method Room Air Oxygen Flow Rate 0 Narrative Exam Narrative: GEN: no acute distress, obese HEENT: moist mucous membranes, PERRL NECK: trachea midline, no JVD CV: regular rate and rhythm, no murmurs PULM: clear bilaterally ABD: soft, nontender, nondistended, no organomegaly, edema present on abdomen EXT: 1+ pitting edema from feet to thigh, scrotum improved swelling but no significant erythema NEURO: awake, alert, oriented, no focal deficits Objective Labs 04/11/23 05:25 04/11/23 05:25 Labs: Laboratory Results - last 24 hr 04/06/23 04/11/23 09:17 05:25 WBC 10.7 RBC 5.09 Hgb 14.5 Hct 43.0 MCV 84.6 MCH 28.4 MCHC 33.6 RDW 14.5 Plt Count 303 Neut % (Auto) 74.6 Lymph % (Auto) 11.7 L [place] % (Auto) 9.8 Eos % (Auto) 3.0 Baso % (Auto) 0.9 Neut # (Auto) 8000 H Lymph # (Auto) 1200 [place] # (Auto) 1000 H Eos # (Auto) 300 Baso # (Auto) 100 Sodium 139 Potassium 4.0 Chloride 109 H Carbon Dioxide 20 L BUN 38 H Creatinine 1.27 H Estimated GFR > 60 BUN/Creatinine Ratio 29.9 H Glucose 101 H Calcium 9.6 Magnesium 2.4 H Plasma Metanephrine 41.6 Plasma Normetanephrine 317.4 H PENDING SALE TO [facility] Medical History (Updated 04/05/23 @ 15:34 by Deven Heard DO) HTN (hypertension) Family History (Updated 04/02/23 @ 22:15 by Astrid Spencer RN) Brother Age: 47 No problems noted. Mother Age: 71 Skin cancer NSTEMI (non-ST elevated myocardial infarction) Cancer Hypertension Sister Age: 43 Skin cancer Father Stroke due to embolism of left middle cerebral artery Hypertension Social History household members: family Smoking Status: Never smoker alcohol intake: never Assessment & Plan Assessment and plan (1) Acute HF (heart failure): Problem details: Acute systolic heart failure Status: Acute Plan: -Echo with EF 20-25%, global LV hypokinesis -Likely result of longstanding, untreated HTN, but underlying etiology not known. -Now on beta xiomy, 25 mg daily. -as patient has diuresed well will decrease lasix to 60mg IV BID and stop acetazolamide losartan, spironolactone started per cards. Losartan increase ordered for 50 mg, BP borderline elevated today. -plan for stress test tomorrow, per DI can do resting on 04/12, and stress portion on 04/13 (2) Cellulitis of scrotum: Status: Acute Plan: patient noted fevers at home to 103F, afebrile here US scrotum suggested possible cellulitis with soft tissue swelling WBC elevated initially, now normal continued rocephin for 5 days, switched vanc to linezolid to limit 250cc IVF with each vanc dose. Antibiotics now discontinued. (3) HTN (hypertension): Status: Acute Plan: Severe on presentation. Started losartan, amlodipine and spironolactone. Improving. Started beta xiomy as noted above as well. (4) Acute kidney injury superimposed on chronic kidney disease: Status: Acute Plan: Likely secondary to volume overload, JARED has been improving thus far with diuresis. Unknown baseline creatinine but likely around 1.3. Cr as high as 1.6 on 04/03. 07.13 today. Continue to monitor with continued diuresis. Assessment & Plan narrative: .
[2023-04-12] VITALS (8 sets, daily range): BP systolic 127–153; BP diastolic 76–97; PULSE 68–84; RESP 17–20; TEMP 35.9–36.9; O2SAT 95–98
[2023-04-12 06:21] LABS: Blood Urea Nitrogen 38 mg/dL (9-20); Calcium 9.5 mg/dL (8.4-10.2); Carbon Dioxide 21 mmol/L (22-32); Chloride 107 mmol/L (98-107); Estimated Glomerular Filt Rate > 60 mL/min (>60); Glucose 99 mg/dL (70-100); HEMOLYSIS < 15 (0-50); Magnesium 2.4 mg/dL (1.6-2.3); Potassium 4.1 mmol/L (3.4-5.1); Sodium 139 mmol/L (137-145)
[2023-04-12] MEDS: ACETAMINOPHEN 325 MG TABLET 650 MG PO (08:37)
[2023-04-12] MEDS: AMLODIPINE 5 MG TABLET 10 MG PO (08:59)
[2023-04-12] MEDS: POTASSIUM CHLORIDE 20 MEQ TAB PO (08:59)
[2023-04-12] MEDS: ENOXAPARIN 40 MG/0.4 ML SYRINGE SUBCUT (09:00)
[2023-04-12] MEDS: SPIRONOLACTONE 25 MG TABLET 12.5 MG PO (09:00)
[2023-04-12] MEDS: LOSARTAN 25 MG TABLET 50 MG PO (09:01)
[2023-04-12] MEDS: SODIUM CHLORIDE 0.9% FLUSH 10 ML IV ×4 (09:02→20:45)
[2023-04-12] MEDS: METOPROLOL ER 25 MG TABLET PO (09:02)
[2023-04-12] MEDS: FUROSEMIDE 60 MG in SODIUM CHLORIDE 0.9% 50 ML 112 MG IV ×2 (10:15→17:33)
--- NOTE | 2023-04-12 11:37 | CM.DPC ---
DCP Cont. Reviewed chart and team rounds for status updates. Anticipated d/c for 04/13. [employer] offered local food resources for pt, per his request. Plan is continued diuresis prior to d/c. Cont. to monitor.
[2023-04-12 12:40] LABS: Aldosterone/Renin Activity Rat 31.7; Plama Renin, LC/MS/MS 0.243
--- NOTE | 2023-04-12 14:50 | PM.PN.1 ---
Subjective Subjective Interval history: Edema better in feet and legs but not gone. No chest pain or dyspnea. Scrotal edema resolved. Exam Vital Signs (past 8 hours): - 04/12/23 08:00 04/12/23 08:30 04/12/23 09:01 Temperature 98 F 97.6 F Pulse Rate 69 70 70 Respiratory Rate 18 Blood Pressure 141/90 H 143/96 H 143/96 H Pulse Oximetry 95 98 04/12/23 09:02 Temperature Pulse Rate 70 Respiratory Rate Blood Pressure 143/96 H Pulse Oximetry Oxygen Delivery Method Room Air Oxygen Flow Rate 0 Narrative Exam Narrative: NAD Lungs clear with normal effort CV RRR without M/G/R Abdomen Soft, NT/ND No rash Pitting leg edema, lower third of legs. Objective Labs 04/11/23 05:25 04/12/23 05:10 Labs: Laboratory Results - last 24 hr 04/03/23 04/12/23 03:09 05:10 Sodium 139 Potassium 4.1 Chloride 107 Carbon Dioxide 21 L BUN 38 H Creatinine 1.15 Estimated GFR > 60 BUN/Creatinine Ratio 33.0 H Glucose 99 Calcium 9.5 Magnesium 2.4 H Renin 0.243 Aldosterone 7.7 Aldosterone/Renin Ratio 31.7 PFSH Medical History (Updated 04/05/23 @ 15:34 by Deven Heard DO) HTN (hypertension) Family History (Updated 04/02/23 @ 22:15 by Astrid Spencer RN) Brother Age: 47 No problems noted. Mother Age: 71 Skin cancer NSTEMI (non-ST elevated myocardial infarction) Cancer Hypertension Sister Age: 43 Skin cancer Father Stroke due to embolism of left middle cerebral artery Hypertension Social History household members: family Smoking Status: Never smoker alcohol intake: never Assessment & Plan Assessment & Plan narrative: (1) Acute HF (heart failure), POA: Problem details: Acute systolic heart failure Status: Acute Plan: -Echo with EF 20-25%, global LV hypokinesis -Likely result of longstanding, untreated HTN, but underlying etiology not known. -Now on beta xiomy, 25 mg daily. -as patient has diuresed well will decrease lasix to 60mg IV BID and stop acetazolamide losartan, spironolactone started per cards. Losartan increase ordered for 50 mg, BP borderline elevated today. -plan for stress test, can do resting on 04/12, and stress portion on 04/13 -continue diuresis (2) Cellulitis of scrotum, POA and resolved: Status: Acute Plan: patient noted fevers at home to 103F, afebrile here US scrotum suggested possible cellulitis with soft tissue swelling WBC elevated initially, now normal continued rocephin for 5 days, switched vanc to linezolid to limit 250cc IVF with each vanc dose. Antibiotics now discontinued. Did have scrotal edema as well from CHF (3) HTN (hypertension), POA: Status: Acute Plan: Severe on presentation. Started losartan, amlodipine and spironolactone. Improving. Started beta xiomy as noted above as well. (4) Acute kidney injury superimposed on chronic kidney disease, POA and improved: Status: Acute Plan: follow renal funcrtion. Time Spent With Patient Time with patient: 30 to 49 minutes with 50% spent counseling/coordinating care
[2023-04-12] MEDS: SODIUM CHLORIDE 0.9% 250 ML 21 ML IV (17:37)
[2023-04-13] VITALS (7 sets, daily range): BP systolic 118–156; BP diastolic 70–96; PULSE 77–96; RESP 17–18; TEMP 36.2–36.5; O2SAT 96–98
[2023-04-13] MEDS: ENOXAPARIN 40 MG/0.4 ML SYRINGE SUBCUT (08:51)
[2023-04-13] MEDS: FUROSEMIDE 60 MG in SODIUM CHLORIDE 0.9% 50 ML 112 MG IV ×2 (08:51→16:40)
[2023-04-13] MEDS: AMLODIPINE 5 MG TABLET 10 MG PO (08:52)
[2023-04-13] MEDS: POTASSIUM CHLORIDE 20 MEQ TAB PO (08:52)
[2023-04-13] MEDS: METOPROLOL ER 25 MG TABLET PO (08:53)
[2023-04-13] MEDS: LOSARTAN 25 MG TABLET 50 MG PO (08:54)
[2023-04-13] MEDS: SODIUM CHLORIDE 0.9% FLUSH 10 ML IV (08:55)
[2023-04-13] MEDS: SPIRONOLACTONE 25 MG TABLET 12.5 MG PO (08:55)
--- NOTE | 2023-04-13 08:57 | PM.PN.1 ---
Subjective Subjective Interval history: He is doing well. He still has some leg edema but denies shortness of breath. No chest pain. He had resting images for his stress test yesterday and will complete this today. Exam Vital Signs (past 8 hours): - 04/13/23 04:00 04/13/23 07:49 04/13/23 08:53 Temperature 97.7 F 97.2 F L Pulse Rate 89 77 77 Respiratory Rate 17 18 Blood Pressure 156/96 H 134/83 134/83 Pulse Oximetry 96 96 Oxygen Flow Rate 0 0 04/13/23 08:54 Temperature Pulse Rate 77 Respiratory Rate Blood Pressure 134/83 Pulse Oximetry Oxygen Flow Rate Oxygen Delivery Method Room Air Oxygen Flow Rate 0 Narrative Exam Narrative: No acute distress, fluid speech. No oxygen. Lungs are clear, normal effort. Heart is regular, no murmur. Abdomen is soft, nontender. Legs have pitting 1 to 2+ edema to the mid coronel bilaterally. Improved from yesterday. Objective Labs 04/11/23 05:25 04/12/23 05:10 Labs: Laboratory Results - last 24 hr 04/03/23 03:09 Renin 0.243 Aldosterone 7.7 Aldosterone/Renin Ratio 31.7 PFSH Medical History (Updated 04/05/23 @ 15:34 by Deven Heard DO) HTN (hypertension) Family History (Updated 04/02/23 @ 22:15 by Astrid Spencer RN) Brother Age: 47 No problems noted. Mother Age: 71 Skin cancer NSTEMI (non-ST elevated myocardial infarction) Cancer Hypertension Sister Age: 43 Skin cancer Father Stroke due to embolism of left middle cerebral artery Hypertension Social History household members: family Smoking Status: Never smoker alcohol intake: never Assessment & Plan Assessment & Plan narrative: 1. Acute on chronic systolic heart failure, present on admission and improving. Echo revealed an EF of 20-25% with global hypokinesis. This is possibly related to hypertensive cardiomyopathy. The patient will continue metoprolol 25 daily as well as diuresis with Lasix at 60 IV b.i.d.. Cardiology did recommend losartan, and spironolactone, these will be continued . Patient will complete stress test today. 2. Scrotal edema and possible cellulitis, present on admission and improved. Antibiotics have been stopped. 3. Essential hypertension, present on admission and active. Plan is medications as noted above. 4. Acute kidney injury, present on admission and improved. We will follow renal function. Anticipate discharge in approximately 1 day to home. Time Spent With Patient Time with patient: 30 to 49 minutes with 50% spent counseling/coordinating care
[2023-04-13 12:57] LABS: Add Manual Diff / Slide Review NO; Basophils Absolute Auto 100 /uL (0-100); Basophils Percent Auto 1.1 % (0-2); Eosinophils Absolute Auto 300 /uL (0-450); Eosinophils Percent Auto 2.8 % (2-4); Hemoglobin 15.4 g/dL (13.5-17.5); Lymphocytes Absolute Auto 1300 /uL (1100-4500); Lymphocytes Percent Auto 12.1 % (25-40); Mean Corpuscular HGB Conc 33.6 % (30-36); Mean Corpuscular Hemoglobin 28.4 PG (26-34); Mean Corpuscular Volume 84.6 fL (80-100); Monocytes Absolute Auto 1000 /uL (0-900); Neutrophils Absolute Auto 8000 /uL (1500-7000); Platelet Count 291 X10^3/uL (150-400); Red Blood Cell Count 5.43 X10^6/uL (4.5-5.9); Red Cell Distribution Width 14.3 % (11.6-14.8); White Blood Cell Count 10.6 X10^3/uL (4.5-11.0)
[2023-04-13 13:09] LABS: BUN Creatinine Ratio 31.7 (6-22); Blood Urea Nitrogen 33 mg/dL (9-20); Calcium 9.9 mg/dL (8.4-10.2); Carbon Dioxide 23 mmol/L (22-32); Chloride 106 mmol/L (98-107); Estimated Glomerular Filt Rate > 60 mL/min (>60); Glucose 96 mg/dL (70-100); HEMOLYSIS < 15 (0-50); Potassium 4.2 mmol/L (3.4-5.1); Sodium 139 mmol/L (137-145)
--- NOTE | 2023-04-13 16:00 | P.DS_ITS ---
History of Present Illness History of Present Illness Date Patient Seen: 04/13/23 Time Patient Seen: 16:01 Chief complaint: severe swelling of scrotum Narrative: 53 y/o with PMH of HTN, presented to ED with grossly swollen scrotum and difficulty ambulating. Workup negative for cellulitis or abscess although given a dose of Rocephin on admission due to high suspicion. In ED severely hypertensive with evidence of likely CKD. He complains on heaviness and scrotal tenderness, w/o fever, chills, dysuria or hematuria. Occasionally he has palpitations but not chest pain or pressure. He has significant exertional dyspnea lately. In the past he used to take Lisinopril for HTN but he stopped it couple of years ago, during pandemic, thinking ACEI will get him infected easier. Did not see PCP since. Treated with Lasix 40 mg x 1 iv and admitted with HF and uncontrolled HTN, on telemetry, with slightly elevated troponins. Discharge Providers Provider Date of admission: 04/02/23 01:31 Discharge Date: 04/13/23 Primary care physician: Doctor Marielle MD Consults: Phone with cardiology Discharge provider: Emmanuel Dias MD Summary Hospital Course Discharge Diagnosis: 1. Acute systolic heart failure, POA and improved. 2. Hypertension, present on admission and improved. 3. Hypertensive cardiomyopathy, present on admission and active 4. Scrotal edema and possible scrotal cellulitis, present on admission and resolved. 5. Acute kidney injury, present on admission and improved. Hospital Course: The patient was admitted with severe volume overload. Initial echo revealed systolic dysfunction. The patient was diuresed aggressively. He had edema of his scrotum and redness and was treated empirically with antibiotics for possible cellulitis. He had been off blood pressure medications for several years. He did improve and the patient responded to diuretics and lost a tremendous amount of water weight. His renal function also improved. He was discussed by telephone with Cardiology with recommendations for stress test for risk stratification. His stress test revealed a low risk for ischemia. This is presumed hypertensive cardiomyopathy. The patient denies a history of drug or alcohol use. On the day of discharge he had very minor edema of the very lower extremities and was in good condition for discharge home to continue diuresis with oral diuretics. He will also be started on medications for systolic dysfunction. He does need a primary care doctor, this will be arranged at [facility] over the next week. He will then be referred to Cardiology for ongoing follow-up. Status at Discharge Cognitive/behavioral status at discharge: oriented Functional status at discharge: independent ambulation Overall status at discharge: patient is back to baseline Time Spent with Patient Time spent: Greater than 30 minutes Exam Vital Signs (past 8 hours): - 04/13/23 08:53 04/13/23 08:54 04/13/23 10:40 Temperature Pulse Rate 77 77 80 Respiratory Rate Blood Pressure 134/83 134/83 Pulse Oximetry Oxygen Flow Rate 04/13/23 15:00 Temperature 97.1 F L Pulse Rate 82 Respiratory Rate 18 Blood Pressure 118/70 Pulse Oximetry 98 Oxygen Flow Rate 0 Oxygen Delivery Method Room Air Oxygen Flow Rate 0 Narrative Exam Narrative: No acute distress Lungs are clear, normal effort. Heart is regular, no murmur. Abdomen is soft. Extremities with very minor edema of the very lower extremities and feet. Objective ECG Impression: NSR Imaging Echo: Radiologist's impression: The left ventricle is mild-moderately dilated. There is moderate concentric left ventricular hypertrophy. The ejection fraction is estimated to be 20-25%. There is severe global hypokinesis of the left ventricle. Diastolic parameters suggest a restrictive filling pattern consistent with probable significantly elevated filling pressures. Mildly dilated right ventricle with normal right ventricular systolic function. The left atrium is moderately dilated. The right atrium is mild to moderately dilated. Mild aortic regurgitation. Mild mitral regurgitation. Moderate tricuspid regurgitation. The right ventricular systolic pressure is estimated to be at least 51 mmHg based on an estimated right atrial pressure of 15 mm Hg. The ascending aorta is mild-moderately enlarged Chest x-ray: Radiologist's impression: IMPRESSION: Finding is concerning for small left upper lobe infiltrate. No pleural effusion or pneumothorax. Labs 04/13/23 12:48 04/13/23 12:48 Labs: Laboratory Results - last 24 hr 04/13/23 12:48 WBC 10.6 RBC 5.43 Hgb 15.4 Hct 46.0 MCV 84.6 MCH 28.4 MCHC 33.6 RDW 14.3 Plt Count 291 Neut % (Auto) 75.0 Lymph % (Auto) 12.1 L [place] % (Auto) 9.0 Eos % (Auto) 2.8 Baso % (Auto) 1.1 Neut # (Auto) 8000 H Lymph # (Auto) 1300 [place] # (Auto) 1000 H Eos # (Auto) 300 Baso # (Auto) 100 Sodium 139 Potassium 4.2 Chloride 106 Carbon Dioxide 23 BUN 33 H Creatinine 1.04 Estimated GFR > 60 BUN/Creatinine Ratio 31.7 H Glucose 96 Calcium 9.9 PFSH Medical History (Updated 04/05/23 @ 15:34 by Deven Heard DO) HTN (hypertension) Family History (Updated 04/02/23 @ 22:15 by Astrid Spencer RN) Brother Age: 47 No problems noted. Mother Age: 71 Skin cancer NSTEMI (non-ST elevated myocardial infarction) Cancer Hypertension Sister Age: 43 Skin cancer Father Stroke due to embolism of left middle cerebral artery Hypertension Social History household members: family Smoking Status: Never smoker alcohol intake: never Discharge Assessment & Plan Assessment and Plan Assessment: 1. Acute systolic heart failure, POA and improved. 2. Hypertension, present on admission and improved. 3. Hypertensive cardiomyopathy, present on admission and active 4. Scrotal edema and possible scrotal cellulitis, present on admission and resolved. 5. Acute kidney injury, present on admission and improved. Plan of Treatment: Plan is discharge home and continue therapy with diuretics and heart failure medications. We will help him arrange a follow-up with scheduled [facility] primary care and a cardiology referral we will follow. He will diamond picker a weight scale and check weights daily, low-sodium diet. He is asked to watch for dyspnea or worsening edema, or increased body weight. Discharge Plan Discharge Plan Patient Disposition: Home Discharge orders & Medications Prescriptions: New amlodipine [Norvasc] 5 mg Tablet 10 mg PO DAILY Qty: 30 2RF potassium chloride [Klor-Con M20] 20 mEq Tablet,Er Particles/Crystals 20 meq PO DAILYCC Qty: 30 2RF losartan 25 mg Tablet 50 mg PO DAILY Qty: 30 2RF metoprolol succinate 25 mg Tablet Extended Release 24 Hr 25 mg PO DAILY Qty: 30 2RF furosemide [Lasix] 40 mg tablet 40 mg PO DAILY Qty: 30 2RF spironolactone 25 mg Tablet 12.5 mg PO DAILY Qty: 30 2RF Discontinued lisinopril 40 MG tablet 40 mg PO QDAY Qty: 90 3RF Patient Comments: pt states he stopped taking medications during COVID d/t fear of being quarantined for coughing Medication counseling provided by Pharmacist: No Follow up/Referrals: Emmanuel Dias MD [Physician] - Doctor Palomares MD [Primary Care Provider] - Discharge Health Status Multidrug resistant organism: No MDRO Diet/Activity/Treatments Diet: Low-sodium Activity: as tolerated Skin/Wound/Dressing Care Report to your healthcare provider any signs of infection, such as:: chills, fever and increased pain Visit Report/Discharge Packet Instructions: Cardiac Stress Test, DI for Heart Failure, DI for Cardiac Stress Test Stand Alone Forms: Patient Portal/API Discharge Data Primary Care Provider: Doctor Marielle Quality MIPS - DC The patient has a history of heart transplant or Left Ventricular Assist Device (LVAD). If yes, STOP here.: No The patient has current or prior documentation of left ventricular ejection fraction (LVEF) less than or equal to 40%, or moderate or severely depressed left ventricular systolic function.: Yes A. The patient was prescribed or already taking an Angiotensin-Converting Enzyme (LUIS MANUEL) Inhibitor, or Angiotensin Receptor Walter (ARB).: Yes B. The patient was prescribed or already taking a beta-walter. [If Yes to Both A & B, STOP here]: Yes
--- NOTE | 2023-04-18 09:38 | DI.NM.S_ITS ---
DATE OF SERVICE: 04/13/2023 PROCEDURE: Exercise treadmill, converted to pharmacologic vasodilator stress and rest myocardial perfusion imaging study with gating to assess ejection fraction and regional wall motion. ORDERING PROVIDER: Dr. Osiel Singh.. INDICATIONS: The patient is a 53-year-old obese hypertensive male admitted with severe hypertension and CHF with mildly abnormal troponin. CARDIAC STRESS: The patient was exercised on the treadmill for 4 minutes on a standard [facility]a protocol but with inadequate heart rate response, and therefore was converted to a pharmacologic study with infusion of 0.4 mg of regadenoson. He continued to walk at a low level and achieved a maximum heart rate of 131 BPM (78% of his predicted maximum). He had a normal blood pressure response. His resting ECG shows sinus rhythm with an LVH pattern and repolarization abnormality, but there are no significant ST-segment shifts or arrhythmias with stress. He had no chest discomfort but had generalized leg fatigue. Per protocol, 27.5 millicuries of technetium-99m Myoview was injected and he was imaged 20 minutes later using a gated SPECT acquisition protocol. The day prior, while at rest, he had been injected with 27.5 millicuries of technetium-99m Myoview and was imaged 15 minutes later, again using a gated SPECT acquisition protocol. FINDINGS: 1. Raw data: There is fair myocardial tracer uptake but with some evidence for diaphragmatic attenuation. The lung/heart ratio is normal at 0.32 with a normal TID ratio of 0.94. 2. Quantitated gated SPECT: Post-stress ejection fraction is estimated at 45% with mild global hypokinesis but no obvious focal wall motion abnormality and specifically the inferior wall has similar contractility as the other segments. The resting ejection fraction is estimated at 31% but visually appears similar to that of the post-stress ejection fraction, perhaps slightly lower. Resting end-diastolic volume is severely increased at 299 mL. 3. Myocardial perfusion imaging: Post-stress supine images show a fairly normal myocardial perfusion study except for a mild defect at the base of the inferior wall, becoming slightly more prominent in the distal inferolateral wall in a pattern that would be consistent with diaphragmatic attenuation, supported by its resolution at the base of the inferior wall, although a slight defect remains present distally. The resting images show an identical perfusion pattern without any improvement in the proximal inferior or distal inferolateral defect. IMPRESSION: 1. Abnormal myocardial perfusion study because of reduced left ventricular function. 2. Small, fixed distal inferolateral perfusion defect that likely represents diaphragmatic attenuation, although a previous nontransmural infarction cannot be entirely excluded since the defect persists to a slight degree on the prone images. There is no reversibility to suggest any myocardial ischemia. 3. Moderately reduced left ventricular systolic function in a global fashion without any obvious focal wall motion abnormality and severely increased left ventricular volumes. 4. Significantly reduced exercise capacity without angina or ECG evidence of ischemia. There were no arrhythmias. Telly Gar - GERI/[place]/paramjit doc#: [id number]/job#: [id number] dd: 04/13/2023 13:06:00 dt: 04/13/2023 14:45:00 DICTATING MD/COPIES TO: Shai Porter MD; Osiel Singh MD COPIES MNE: BREA; ; Osiel Singh MD
== END 2023-04-13 20:15 | disposition home or self-care (01) | DRG 291 ==
LOC: ED 19:31 → AC 04-02 01:32
PROVIDERS: Hospitalist; Internal Medicine; Student in an Organized Health Care Education/Training Program; Admitting Provider Internal Medicine; Emergency Provider Emergency Medicine; Referring Provider Emergency Medicine; Visit Provider Internal Medicine
DX: I13.0 Hypertensive heart and chronic kidney disease with heart failure and stage 1 through stage 4 chronic kidney disease, or unspecified chronic kidney disease (principal); I50.21 Acute systolic (congestive) heart failure; N17.9 Acute kidney failure, unspecified; N18.9 Chronic kidney disease, unspecified; N49.2 Inflammatory disorders of scrotum; I43 Cardiomyopathy in diseases classified elsewhere; Z91.148 Patient's other noncompliance with medication regimen for other reason
CPT/HCPCS: 36415; 71045; 76870; 78452; 80048; 80053; 80061; 80202; 80305; 81001; 82088; 82550; 82570; 83036; 83690; 83735; 83835; 83880; 84132; 84145; 84156; 84244; 84484; 85025; 87633; 93005; 93017; 93306; 93975; 96365; 96375; 99284; A9502; J0696; J1650; J1940; J2785